=== PATIENT | male | born 1940 | race Caucasian/White ===

== ENCOUNTER 2017-08-19 16:30 | Inpatient (IN) | payer MEDICARE, BC ==
[2017-08-20 08:51] VITALS: BMI 29.0
[2017-08-25] MEDS ORDERED: Tranexamic Acid 1,000 MG/100 ML BAG ONE ×2 (06:01→08:35)
[2017-08-25] MEDS ORDERED: CEFAZOLIN/Water 2 GM/20 ML SYRINGE ONE (06:02)
[2017-08-25] MEDS ORDERED: Vancomycin HCl 1.5 GM in Sodium Chloride 0.9% 250 ML 300 ML IVPB SCH (06:15)
[2017-08-25] MEDS ORDERED: Ropivacaine 0.2% HCl/PF 20 ML ONE (06:19)
[2017-08-25] MEDS ORDERED: Fentanyl 100 MCG/2 ML VIAL ONE ×3 (06:19→09:02)
[2017-08-25] MEDS ORDERED: Lidocaine 1% (PF) 30 ML VIAL ONE (06:19)
[2017-08-25] MEDS ORDERED: Midazolam HCl 2 mg/2 ml Vial ONE (06:19)
[2017-08-25] MEDS ORDERED: traMADol HCl 50 MG TAB PO PRN ×3 (06:50→06:57)
[2017-08-25] MEDS ORDERED: Acetaminophen/Codeine 30-300mg Tablet PO PRN ×2 (06:50)
[2017-08-25] MEDS ORDERED: Ondansetron HCl/PF 4 MG/2 ML Vial IVP PRN ×3 (06:50→08:42)
[2017-08-25] MEDS ORDERED: HYDROcodone/Acetaminophen 10/325 mg Tablet PO PRN ×3 (06:50→06:57)
[2017-08-25] MEDS ORDERED: Zolpidem Tartrate 5 MG TAB PO PRN ×2 (06:50→06:57)
[2017-08-25] MEDS ORDERED: Promethazine HCl 25 MG/ML VIAL IM PRN ×3 (06:50→08:42)
[2017-08-25] MEDS ORDERED: Fentanyl 100 MCG/2 ML VIAL SLOW IVP PRN ×2 (06:50)
[2017-08-25] MEDS ORDERED: Acetaminophen 325 MG TAB PO PRN (06:50)
[2017-08-25] MEDS ORDERED: diphenhydrAMINE 25 MG CAP PO PRN (06:50)
[2017-08-25] MEDS ORDERED: Fentanyl 100 MCG/2 ML VIAL IV PRN (06:57)
[2017-08-25] MEDS ORDERED: Ropivacaine HCl/PF 250 ML in Premix Bag 1 BAG NERVE BLCK SCH (06:57)
[2017-08-25] MEDS ORDERED: Tranexamic Acid 1,000 MG in Sodium Chloride 0.9% 100 ML IVPB SCH (07:00)
[2017-08-25] MEDS ORDERED: Promethazine HCl 25 MG/ML VIAL SLOW IVP PRN (08:42)
[2017-08-25] MEDS ORDERED: Non-Formulary Item 1 EACH (Multivitamin [Multi-Vitamin Daily] 1 TAB) PO SCH (09:00)
[2017-08-25] MEDS: Ferrous Gluconate 324 MG TAB PO SCH ×2 (10:29→21:30)
[2017-08-25] MEDS: Aspirin 325 MG TAB PO SCH ×2 (10:29→21:29)
[2017-08-25] MEDS: Multivit, Therapeutic 1 TAB PO SCH (10:29)
[2017-08-25] MEDS: Multivitamin W/ Minerals 1 TAB PO SCH (10:29)
[2017-08-25] MEDS: Senokot S 8.6-50 MG TAB PO SCH ×2 (10:29→21:30)
--- NOTE | 2017-08-25 10:34 | RAD ---
TWO VIEWS LEFT KNEE: Indication: Left total knee post op. Comparison: None. FINDINGS: There is a left total knee prosthesis that projects in the expected position with scattered intraarti cular and periarticular soft tissue gas. There are moderate to prominent calcifications involving the peripheral vasculature. IMPRESSION: Post-operative left knee. POS: ISABELA
--- NOTE | 2017-08-25 10:56 | OP ---
PREOPERATIVE DIAGNOSIS: Degenerative joint disease, left knee. POSTOPERATIVE DIAGNOSIS: Degenerative joint disease, left knee. SURGEON: Sohail Trinidad M.D. SPORTS BOOK WRITER: Tam Boggs PA-C. BLOOD LOSS: 250 mL. SPECIMEN: None. DRAINS: None. COMPLICATIONS: None. TOURNIQUET TIME: Not used. IMPLANTS USED: 4 [place] [employer] 6 femur, 6 tibia, 9 mm CS X3 polyethylene, and A32 patella. PROCEDURE IN DETAIL: After informed consent was obtained in the preoperative holding area. The garland ent was taken to the operative suite where general anesthesia was induced. Once adequate level of ge neral anesthesia was obtained, the patient was positioned and a well-padded tourniquet was placed rafael und the left proximal thigh. The left lower extremity was then prepped and draped in the usual steri le fashion. Prior to exsanguination, a time out was called and all members of the surgical team agre ed upon site, surgeon, and patient. The extremity was then exsanguinated and the tourniquet was rais ed. A midline longitudinal incision was then made directly over the patella extending two fingerbrea dths above the superior pole of the patella and two fingerbreadths inferior to the inferior patellar pole of the patella. Deeper subcutaneous layers were dissected sharply and local bleeding was contro lled with Bovie electrocautery. A quad tendon longitudinal split was then made sharply and a median parapatellar arthrotomy was carried out both sharp and with Bovie electrocautery, carried down to one fingerbreadth medial to the tibial tubercle. The knee was then placed into flexion and the patella was everted nicely, and a copious fat pad ectomy was performed allowing for greater exposure of the t ibia. The computer-assisted distal femoral fiducial was then placed and pinned firmly, and the dista l femoral cutting guide was pinned firmly into place. The oscillating saw was then used to remove th e appropriate amount of bone. The 4-in-1 cutting block was then placed on the distal femur and the o scillating saw was used to remove the appropriate amount of bone off of the anterior, posterior, and chamfer cuts. After completion of bone cuts, the anterior cruciate ligament was resected sharply and the posterior cruciate ligament retractor was placed and the tibia was subluxed for better exposure. Partial meniscectomies were carried out, and the tibial computer-assisted fiducial was pinned, and the cutting guide was placed. Oscillating saw was then used to remove the bone with Hohmann retracto rs used to take care and protect the collateral ligaments. After the tibial resection was performed, a laminar industrial waste treatment technician was placed in between the freshened bone cuts. The knee placed at 90 degrees and further bilateral meniscectomies were carried out, and the curved osteotome and curettage was used t o remove any excess bone spurs in the posterior compartment. Exparel was then injected into the post erior capsule, kylah-articular synovia, pre-patella synovia, and musculature surrounding the capsule. The trial femoral component, tibial baseplate were placed with the appropriate polyethylene trial in sert with an appropriate polyethylene spacer and patellar button. The knee was taken through full ra nge of motion with flexion and extension from 0-90 degrees and patellar broach squarely in the trochl ea without any squinting or subluxation noted. The knee was also stable to varus and valgus stressin g at 0, 15, 45, and 90 degrees of flexion. The drawer was negative. All trial components were then removed and the keel punch was used to provide the appropriate defect in the tibia with a mallet. Th e freshened bone cuts were copiously irrigated with pulsatile lavage of about 1-1/2 liters to remove all excess debris. The freshened bone cuts were then dried and with suction and lap sponge. The kne e was placed in flexion and retractors were placed to provide access to all bone cuts. Tobramycin im pregnated methyl methacrylate cement was then placed on the freshened bone cuts and implants which we re malleted firmly into place. Curettage and [place] elevators were used to remove any excess bone amina ent. The knee was placed into full extension and the patellar button was placed under compression, a nd the cement was allowed to cure. Once completed, the components were again taken through full rang e of motion and copious irrigation of the knee was carried out with another liter of normal saline. All components were inspected fully with full range of motion and varus and valgus stressing. There w as no laxity noted and full extension was observed clinically. Primary closure was accomplished with #2 interrupted Vicryl stitch of the arthrotomy defect. This was oversewn with a #2 running Quill ba rbed stitch. The gravitational platelet system was then injected into the arthrotomy prior to closur e. The subcutaneous layer was then closed with a running 0 barbed Monocryl stitch and skin closure a ccomplished with a running subcuticular 3-0 Monocryl barbed Quill stitch and augmented with cement on the skin. Tourniquet was lowered. Good spontaneous return of distal pulses was noted clinically an d a sterile dressing was applied to the incision. The procedure was terminated without any complicat ions. The patient was awakened in the operative suite and the tourniquet was removed, and the patien t was taken to the recovery room in stable condition.
[2017-08-25] MEDS: Ketorolac Tromethamine 30 MG/ML VIAL IVP SCH ×2 (11:30→17:16)
[2017-08-25] MEDS ORDERED: Ketorolac Tromethamine 30 MG/ML VIAL IVP SCH (14:00)
[2017-08-25] MEDS: Sodium Chloride 0.9% 1,000 ML IV SCH ×3 (14:21→21:37)
[2017-08-25] MEDS: CEFAZOLIN/Water 2 GM/20 ML SYRINGE SLOW IVP SCH ×2 (14:26→21:30)
[2017-08-25] MEDS ORDERED: Propofol 200 MG/20 ML VIAL ONE (14:31)
[2017-08-25] MEDS ORDERED: Ondansetron HCl/PF 4 MG/2 ML Vial ONE (14:31)
[2017-08-25] MEDS ORDERED: Ketorolac Tromethamine 30 MG/ML VIAL ONE (14:31)
[2017-08-25] MEDS ORDERED: PHENYLEPHRINE-NS 100 MCG/ML 10 ML SYRINGE ONE (14:31)
--- NOTE | 2017-08-25 14:32 | PDOC.PN ---
- Subjective Encounter Start Date: 08/25/17 Encounter Start Time: 14:32 Pt seen for management of medical comorbidities, including BPH. Denies chest pain, shortness of breath, fevers or chills. - Objective MAR Reviewed: Yes Vital Signs & Weight: Vital Signs (12 hours) Temp Pulse Resp BP Pulse Ox 08/25/17 10:39 97.0 F L 65 18 98 08/25/17 10:10 97.0 F L 65 18 156/84 H 98 Weight Weight 180 lb Phys Exam - Physical Examination Constitutional: NAD HEENT: moist MMs Neck: supple Respiratory: clear to auscultation bilateral Cardiovascular: RRR Gastrointestinal: soft s/p L knee surgery Neurological: moves all 4 limbs Psychiatric: normal affect Skin: no rash Dx/Plan (1) BPH (benign prostatic hyperplasia) Code(s): N40.0 - BENIGN PROSTATIC HYPERPLASIA WITHOUT LOWER URINRY TRACT SYMP Status: Chronic (2) Dyslipidemia Code(s): E78.5 - HYPERLIPIDEMIA, UNSPECIFIED Status: Chronic (3) Arthritis Code(s): M19.90 - UNSPECIFIED OSTEOARTHRITIS, UNSPECIFIED SITE Status: Chronic - Plan * .BPH stable. Monitor vital signs. PRN IV hydralazine for BP spikes. Dyslipidemia stable. s/p L knee surgery. DVT prophylaxis and pain management per orthopedic surgery service. Review of Systems - Review of Systems Respiratory: negative: Cough, Dry, Shortness of Breath, Hemoptysis, SOB with Excertion, Pleuritic Pain, Sputum, Wheezing Cardiovascular: negative: Chest Pain, Palpitations, Orthopnea, Paroxysmal Noc. Dyspnea, Edema, Light Headedness - Medications/Allergies Allergies/Adverse Reactions: Allergies Allergy/AdvReac Type Severity Reaction Status Date / Time No Known Allergies Allergy Verified 08/20/17 08:50 Medications: Current Medications Acetaminophen (Tylenol) 650 mg PO Q4H PRN PRN Reason: SANTIAGO/ T > 101F; Mild Pain (1-3) Acetaminophen/Codeine Phosphate (Tylenol #3) 1 tab PO Q4H PRN PRN Reason: Moderate Pain (4-6) Acetaminophen/Codeine Phosphate (Tylenol #3) 2 tab PO Q4H PRN PRN Reason: Severe Pain (7-10) Hydrocodone Bitart/Acetaminophen ([place] 10/325) 1 tab PO Q4H PRN PRN Reason: Pain (1-3) Hydrocodone Bitart/Acetaminophen ([place] 10/325) 2 tab PO Q4H PRN PRN Reason: PAIN (4-6) Aspirin (Aspirin) 325 mg PO BID [facility] Last Admin: 08/25/17 10:29 Dose: Not Given Cefazolin Sodium (Ancef) 2 gm SLOW IVP Q8HR [facility] Stop: 08/25/17 22:01 Last Admin: 08/25/17 14:26 Dose: 2 gm Diphenhydramine HCl (Benadryl) 25 mg PO Q6H PRN PRN Reason: Itching Fentanyl (Sublimaze) 50 mcg IV Q1H PRN PRN Reason: BREAKTHROUGH PAIN Ferrous Gluconate (Fergon) 324 mg PO BID [facility] Last Admin: 08/25/17 10:29 Dose: Not Given Sodium Chloride (Normal Saline 0.9%) 1,000 mls @ 100 mls/hr IV .Q10H [facility] Last Admin: 08/25/17 14:21 Dose: 1,000 mls Tranexamic Acid 1,000 mg/ (Sodium Chloride) 110 mls @ 200 mls/hr IVPB ONE [facility] Stop: 08/25/17 21:00 Ropivacaine 250 ml/ Device 250 mls @ 0 mls/hr NERVE BLCK INF [facility] PRN Reason: As Directed Iron/Minerals/Multivitamins (Theragran M) 1 tab PO DAILY [facility] Last Admin: 08/25/17 10:29 Dose: Not Given Ketorolac Tromethamine (Toradol) 15 mg IVP Q6HR [facility] Stop: 08/27/17 06:01 Last Admin: 08/25/17 11:30 Dose: 15 mg Multivitamins (Theragran) 1 tab PO DAILY [facility] Last Admin: 08/25/17 10:29 Dose: Not Given Ondansetron HCl (Zofran) 4 mg IVP Q6H PRN PRN Reason: Nausea/Vomiting Promethazine HCl (Phenergan) 12.5 mg IM Q4H PRN PRN Reason: Nausea Senna/Docusate Sodium (Senokot S) 2 tab PO BID [facility] Last Admin: 08/25/17 10:29 Dose: Not Given Sodium Chloride (Flush - Normal Saline) 10 ml IVF PRN PRN PRN Reason: Saline Flush Tramadol HCl (Ultram) 50 mg PO Q6H PRN PRN Reason: Mild Pain (1-3) Tramadol HCl (Ultram) 100 mg PO Q6H PRN PRN Reason: Moderate Pain 4-6 Zolpidem Tartrate (Ambien) 5 mg PO HSPRN PRN PRN Reason: Insomnia
[2017-08-25] MEDS ORDERED: hydrALAZINE 20 MG/ML VIAL SLOW IVP PRN (14:44)
[2017-08-26] MEDS: Ketorolac Tromethamine 30 MG/ML VIAL IVP SCH ×4 (00:48→17:41)
[2017-08-26] MEDS: HYDROcodone/Acetaminophen 10/325 mg Tablet PO PRN ×2 (02:59→08:21)
[2017-08-26 05:38] LABS: Hematocrit 36.5 % (42.0-52.0); Mean Platelet Volume 6.2 fL (7.4-10.4); Red Blood Cell (RBC) Count 3.97 mill/uL (4.70-6.10)
[2017-08-26] MEDS: Multivit, Therapeutic 1 TAB PO SCH (08:23)
[2017-08-26] MEDS: Ferrous Gluconate 324 MG TAB PO SCH ×2 (08:23→20:12)
[2017-08-26] MEDS: Multivitamin W/ Minerals 1 TAB PO SCH (08:23)
[2017-08-26] MEDS: Senokot S 8.6-50 MG TAB PO SCH ×2 (08:23→20:12)
[2017-08-26] MEDS: Aspirin 325 MG TAB PO SCH ×2 (08:23→20:12)
[2017-08-26] MEDS: Sodium Chloride 0.9% 1,000 ML IV SCH ×2 (11:42→20:21)
--- NOTE | 2017-08-26 13:53 | PDOC.PN ---
- Subjective Encounter Start Date: 08/26/17 Encounter Start Time: 09:00 Pt seen for followup re: dyslipidemia. Denies history of BPH. Reports he never needed to be on medication for dyslipidemia. No complaints. - Objective MAR Reviewed: Yes Vital Signs & Weight: Vital Signs (12 hours) Temp Pulse Resp BP Pulse Ox 08/26/17 11:36 98.5 F 70 16 129/75 97 08/26/17 08:20 99.7 F H 74 16 148/76 H 100 08/26/17 04:47 99.1 F 72 18 133/73 94 L Weight Admit Weight 180 lb Weight 180 lb I&O: 08/25/17 08/26/17 08/27/17 06:59 06:59 06:59 Intake Total 1700 Output Total 1300 Balance 400 Result Diagrams: 08/27/17 05:08 Phys Exam - Physical Examination Constitutional: NAD HEENT: moist MMs Neck: supple Respiratory: clear to auscultation bilateral Cardiovascular: RRR Gastrointestinal: soft s/p L knee surgery Neurological: moves all 4 limbs Psychiatric: normal affect Dx/Plan (1) Dyslipidemia Code(s): E78.5 - HYPERLIPIDEMIA, UNSPECIFIED Status: Chronic (2) Arthritis Code(s): M19.90 - UNSPECIFIED OSTEOARTHRITIS, UNSPECIFIED SITE Status: Chronic - Plan PT/OT, out of bed/ambulate * . Continue to monitor vital signs. PRN IV hydralazine. Review of Systems - Review of Systems Cardiovascular: negative: Chest Pain, Palpitations, Orthopnea, Paroxysmal Noc. Dyspnea, Edema, Light Headedness Gastrointestinal: negative: Nausea, Vomiting, Abdominal Pain, Diarrhea, Constipation, Melena, Hematochezia - Medications/Allergies Allergies/Adverse Reactions: Allergies Allergy/AdvReac Type Severity Reaction Status Date / Time No Known Allergies Allergy Verified 08/20/17 08:50 Medications: Current Medications Acetaminophen (Tylenol) 650 mg PO Q4H PRN PRN Reason: SANTIAGO/ T > 101F; Mild Pain (1-3) Acetaminophen/Codeine Phosphate (Tylenol #3) 1 tab PO Q4H PRN PRN Reason: Moderate Pain (4-6) Acetaminophen/Codeine Phosphate (Tylenol #3) 2 tab PO Q4H PRN PRN Reason: Severe Pain (7-10) Hydrocodone Bitart/Acetaminophen ([place] 10/325) 1 tab PO Q4H PRN PRN Reason: Pain (1-3) Hydrocodone Bitart/Acetaminophen ([place] 10/325) 2 tab PO Q4H PRN PRN Reason: PAIN (4-6) Last Admin: 08/26/17 08:21 Dose: 2 tab Aspirin (Aspirin) 325 mg PO BID [facility] Last Admin: 08/26/17 08:23 Dose: 325 mg Diphenhydramine HCl (Benadryl) 25 mg PO Q6H PRN PRN Reason: Itching Fentanyl (Sublimaze) 50 mcg IV Q1H PRN PRN Reason: BREAKTHROUGH PAIN Ferrous Gluconate (Fergon) 324 mg PO BID [facility] Last Admin: 08/26/17 08:23 Dose: 324 mg Hydralazine HCl (Apresoline) 10 mg SLOW IVP Q6H PRN PRN Reason: SBP Greater Than 170 Sodium Chloride (Normal Saline 0.9%) 1,000 mls @ 100 mls/hr IV .Q10H [facility] Last Admin: 08/26/17 11:42 Dose: Not Given Ropivacaine 250 ml/ Device 250 mls @ 0 mls/hr NERVE BLCK INF [facility] PRN Reason: As Directed Last Admin: 08/26/17 11:11 Dose: 250 mls Iron/Minerals/Multivitamins (Theragran M) 1 tab PO DAILY [facility] Last Admin: 08/26/17 08:23 Dose: 1 tab Ketorolac Tromethamine (Toradol) 15 mg IVP Q6HR [facility] Stop: 08/27/17 06:01 Last Admin: 08/26/17 11:18 Dose: 15 mg Multivitamins (Theragran) 1 tab PO DAILY [facility] Last Admin: 08/26/17 08:23 Dose: 1 tab Ondansetron HCl (Zofran) 4 mg IVP Q6H PRN PRN Reason: Nausea/Vomiting Promethazine HCl (Phenergan) 12.5 mg IM Q4H PRN PRN Reason: Nausea Senna/Docusate Sodium (Senokot S) 2 tab PO BID [facility] Last Admin: 08/26/17 08:23 Dose: 2 tab Sodium Chloride (Flush - Normal Saline) 10 ml IVF PRN PRN PRN Reason: Saline Flush Last Admin: 08/26/17 08:24 Dose: 10 ml Tramadol HCl (Ultram) 50 mg PO Q6H PRN PRN Reason: Mild Pain (1-3) Tramadol HCl (Ultram) 100 mg PO Q6H PRN PRN Reason: Moderate Pain 4-6 Zolpidem Tartrate (Ambien) 5 mg PO HSPRN PRN PRN Reason: Insomnia
[2017-08-27] MEDS: Ketorolac Tromethamine 30 MG/ML VIAL IVP SCH ×2 (00:59→04:21)
[2017-08-27] MEDS: HYDROcodone/Acetaminophen 10/325 mg Tablet PO PRN ×2 (04:19→13:23)
[2017-08-27 05:49] LABS: Hematocrit 35.3 % (42.0-52.0); Mean Platelet Volume 6.3 fL (7.4-10.4); Red Blood Cell (RBC) Count 3.84 mill/uL (4.70-6.10); White Blood Cell (WBC) Count 8.6 thou/uL (4.8-10.8)
[2017-08-27] MEDS: Senokot S 8.6-50 MG TAB PO SCH (08:08)
[2017-08-27] MEDS: Ferrous Gluconate 324 MG TAB PO SCH (08:08)
[2017-08-27] MEDS: Multivit, Therapeutic 1 TAB PO SCH (08:08)
[2017-08-27] MEDS: Aspirin 325 MG TAB PO SCH (08:08)
[2017-08-27] MEDS: Multivitamin W/ Minerals 1 TAB PO SCH (08:08)
[2017-08-27] MEDS: Sodium Chloride 0.9% 1,000 ML IV SCH (09:39)
--- NOTE | 2017-08-27 11:03 | PDOC.EVN ---
Event Note - Event Note Event Note: Pt denie s any complaints. S1, S2, reg, Lungs CTA. Plan for discharge today noted, will sign off.
[2017-08-27 15:14] VITALS: BP 138/71; TEMP 98.6
--- NOTE | 2017-08-31 08:31 | DIS ---
DATE OF ADMISSION: 08/25/2017 DATE OF DISCHARGE: 08/27/2017 PREOPERATIVE DIAGNOSIS: Osteoarthritis/degenerative joint disease, left knee. DISCHARGE DIAGNOSIS: Osteoarthritis/degenerative joint disease, left knee. PROCEDURE: The patient underwent a left total knee replacement. HOSPITAL COURSE: Hospital stay was unremarkable. The patient was admitted to [address] where he worked with staff, physical therapy, occupational therapy, and progressed quite well. By postoperative day #2, he was ready to discharge home. DISCHARGE CONDITION: Good/stable. DISPOSITION: Home with family. FOLLOWUP: Followup would be in 3-4 weeks, sooner if there are problems or concerns. DISCHARGE MEDICATIONS: Given with usage instructions. Tam Boggs PA-C dictating for Dr. Sohail Trinidad.
== END 2017-08-27 15:33 | disposition home or self-care (01) | DRG 470 ==
LOC: SJJU 08-25 05:36
PROVIDERS: ADMIT Orthopaedic Surgery; ATTEND Orthopaedic Surgery
PROC: 0SRD0J9 Replacement of Left Knee Joint with Synthetic Substitute, Cemented, Open Approach (ICD-10-PCS; principal; 2017-08-25)
PROC: 3E0T3BZ Introduction of Anesthetic Agent into Peripheral Nerves and Plexi, Percutaneous Approach (ICD-10-PCS; 2017-08-25)
DX: M17.12 Unilateral primary osteoarthritis, left knee (principal); E78.5 Hyperlipidemia, unspecified; N40.0 Benign prostatic hyperplasia without lower urinary tract symptoms
CPT/HCPCS: 36415; 85027; C1713; C1776; G8978-GP-CL; G8979-GP-CJ; J1885; J2001; J2250; J2405; J2704; J2795; J3010; J3370; J7050

== ENCOUNTER 2017-08-20 08:32 | Outpatient (CLI) | payer MEDICARE, BC ==
[2017-08-20 10:31] LABS: Hematocrit 44.1 % (42.0-52.0); Mean Platelet Volume 6.2 fL (7.4-10.4); Red Blood Cell (RBC) Count 4.79 mill/uL (4.70-6.10); White Blood Cell (WBC) Count 6.7 thou/uL (4.8-10.8)
[2017-08-20 10:50] LABS: Prothrombin Time 14.8 SEC (12.0-14.7)
[2017-08-20 10:52] LABS: Anion Gap 12 mmol/L (10-20); BUN (Urea Nitrogen) 11 mg/dL (8.4-25.7); Calc. Creatinine Clearance 0 mL/min (70-130); Calcium 9.8 mg/dL (7.8-10.44); Carbon Dioxide 26 mmol/L (23-31); Chloride 103 mmol/L (98-107); Estimated GFR-MDRD Greater than 90
== END 2017-08-20 08:33 | disposition home or self-care (01) ==
LOC: LABBT 08:32
PROVIDERS: ATTEND Orthopaedic Surgery
DX: Z01.812 Encounter for preprocedural laboratory examination (principal); M17.12 Unilateral primary osteoarthritis, left knee
CPT/HCPCS: 80048; 85027; 85610; 86850; 86900; 86901

== ENCOUNTER 2019-04-04 07:29 | Inpatient (IN) | payer MEDICARE, BC ==
[2019-04-04] MEDS ORDERED: Piperacillin/Tazobactam 3.375 GM in Sodium Chloride 0.9% 100 ML IVPB SCH (08:00)
[2019-04-04] MEDS ORDERED: Acetaminophen 500 MG TAB ONE (08:19)
[2019-04-04] MEDS ORDERED: Piperacillin/Tazobactam 4.5 GM VIAL ONE (08:19)
--- NOTE | 2019-04-04 08:31 | RAD ---
Radiograph left leg tibia-fibula 2 views: DATE: 04/04/2019 HISTORY: 78-year-old male with nontraumatic left leg pain FINDINGS: Metallic prosthesis at tibial plateau. In the rest of the tibia and fibula, no osteolytic, osteoblast ic, or permeative lesion. No periostitis. No recent fracture. Soft tissue edema. No soft tissue calcification. IMPRESSION: 1. Status post total left knee replacement arthroplasty. 2. Soft tissue edema of the leg. 3. No acute osseous abnormality of tibia or fibula.
[2019-04-04 08:53] LABS: Hemoglobin 14.9 g/dL (14.0-18.0); Mean Corpuscular HGB CONC 33.6 g/dL (32.0-36.0); Mean Corpuscular Hemoglobin 32.3 pg (27.0-31.0); Mean Corpuscular Volume 96.2 fL (78.0-98.0); Mean Platelet Volume 6.7 fL (7.4-10.4); Platelet Count 210 thou/uL (130-400); RBC Distribution Width 12.9 % (11.5-14.5); White Blood Cell (WBC) Count 22.6 thou/uL (4.8-10.8)
[2019-04-04 08:55] LABS: Band 15 % (5-11); Lymphocytes 3 % (21-51); MDiff Complete? YES; Monocytes 8 % (0-10); Neutrophil 74 % (42-75); Platelet Morphology Comment Appears Adequate; Reflex for Review?? NO; Vacuoles MODERATE
[2019-04-04 08:59] LABS: ALT (SGPT) 33 U/L (8-55); AST (SGOT) 42 U/L (5-34); Albumin 4.1 g/dL (3.4-4.8); Alkaline Phosphatase 40 U/L (40-150); Anion Gap 15 mmol/L (10-20); BUN (Urea Nitrogen) 17 mg/dL (8.4-25.7); Bilirubin, Total 1.7 mg/dL (0.2-1.2); Calc. Creatinine Clearance 0 mL/min (70-130); Calcium 9.6 mg/dL (7.8-10.44); Carbon Dioxide 21 mmol/L (23-31); Chloride 95 mmol/L (98-107); Estimated GFR-MDRD 69; Globulin 3.4 g/dL (2.4-3.5); Glucose 102 mg/dL (83-110); Potassium 3.4 mmol/L (3.5-5.1); Protein, Total 7.5 g/dL (5.8-8.1); Sodium 128 mmol/L (136-145)
[2019-04-04] MEDS ORDERED: Sodium Chloride 0.9% 1,000 ML IV SCH (09:00)
--- NOTE | 2019-04-04 09:52 | CT ---
CT left thigh with IV contrast CT left lower leg with IV contrast HISTORY: Left leg pain, edema. Fever. Evaluate for necrotizing fasciitis. Findings left pelvic iliac lymph node measures up to 2.8 cm greatest diameter on the axial images. Sm aller left iliac and inguinal lymph nodes are present. A lower left inguinal lymph node measures up to 2.2 cm diameter on the axial images and retains a normal fatty hilum. There is stranding within th e subcutaneous fat about the periphery of the calf and the anterior aspect of the knee and suprapatellar tissues. Fluid distention of the suprapatellar bursa is present with thickening of the synovial lining apparent. Detail about the knee is largely obscured by metallic beam hardening artifact from knee prosthesis. Fat striations throughout the muscle bundles are maintained. No focal fluid collections are apparent outside of the joint capsule. Prominent calcification throughout the arterial structures. IMPRESSION: Moderate stranding within the subcutaneous tissues of the calf and anterior lower thigh. No soft tissue gas or abscess fluid collections are apparent. Fluid distention of the suprapatellar bursa with thickening of the synovium. Clinical correlation reg arding possibility of infection is required. No gas is present within the fluid distended bursa. Enlarged lymph nodes at the left iliac and inguinal chain are likely reactive (rather than neoplastic ) given the inflamed appearance of the leg. Prominent atherosclerosis.
--- NOTE | 2019-04-04 09:53 | ULT ---
VENOUS DOPPLER ULTRASOUND OF THE LEFT LOWER EXTREMITY: Date: 04/04/19 HISTORY: Left leg edema, pain, and erythema. TECHNIQUE: Barros scale, color flow, and spectral Doppler imaging of the deep venous system of the left lower extr emity performed. FINDINGS: There is good flow, compression, and augmentation noted in the left common femoral, femoral, deep fem oral, popliteal, posterior tibial, and greater saphenous veins. Prominent lymph nodes are seen in the left groin. IMPRESSION: No evidence of deep venous thrombosis in the left lower extremity. POS: [facility]
[2019-04-04] MEDS ORDERED: Heparin 1,000 UNITS/ML VIAL ONE (10:00)
[2019-04-04 10:13] LABS: Bacteria/HPF None Seen HPF (None Seen); Bilirubin Negative (Negative); Blood, Urine 1+ (Negative); Clarity Clear (Clear); Glucose, Urine (Dipstick) Normal (Negative); Leukocyte Negative Leu/uL (Negative); Nitrite Negative (Negative); Protein, Urine (Dipstick) 70 mg/dL (Neg-Trace); Squamous Epithelial None Seen HPF (0-3); Urobilinogen Normal mg/dL (Less than 2); WBC/HPF 0-3 HPF (0-3)
[2019-04-04 12:36] VITALS: BMI 31.9
[2019-04-04 12:37] LABS: Lactic Acid 1.7 mmol/L (0.5-2.2)
[2019-04-04] MEDS ORDERED: Ondansetron PF 4 MG/2 ML Vial IVP PRN ×2 (12:55→13:52)
[2019-04-04] MEDS ORDERED: Ondansetron ODT 4 MG TAB SL PRN (12:55)
[2019-04-04] MEDS ORDERED: Acetaminophen 325 MG TAB PO PRN (12:55)
[2019-04-04] MEDS ORDERED: Senokot S 8.6-50 MG TAB PO PRN (13:52)
[2019-04-04] MEDS ORDERED: Bisacodyl 10 MG SUPP PR PRN (13:52)
[2019-04-04] MEDS ORDERED: ISOVUE-370 76%-LOCM 1 ML ONE (13:58)
[2019-04-04] MEDS ORDERED: Piperacillin/Tazobactam 4.5 GM in Sodium Chloride 0.9% 100 ML IVPB SCH (14:00)
--- NOTE | 2019-04-04 14:44 | HP ---
REASON FOR ADMISSION: Sepsis, left lower extremity cellulitis. HISTORY OF PRESENTING ILLNESS: The patient gives history of having left lower extremity edema, swelling, and redness which started on Thursday. This has been progressively getting worse. This morning, he could barely ambulate because of severe pain. He made it to emergency room. He also mentions that, on Thursday morning, the patient did various workouts at the recreational center at [facility]. He did a lot of pushups and weightlifting. He also did various other activities. He thinks that might have caused his current symptoms. On arrival in ER, the patient was found to have had a white count of 22 with temperature of 100 and bandemia. His sodium was also low at 128. He has no complaints of nausea, vomiting, or diarrhea. PAST MEDICAL AND SURGICAL HISTORY: Dyslipidemia and bilateral knee replacements. CURRENT MEDICATION: Fish oil 1000 mg daily. ALLERGIES: NO KNOWN DRUG ALLERGIES. PERSONAL HISTORY: Does not abuse alcohol or drugs. No history of smoking. 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 He lives with his roommate. FAMILY HISTORY: Mother at the age of 87 years from natural causes. Father at the age of 66, he had uncontrolled hypertension and was a smoker. Code status is full. Power of attorney lawyer is his roommate, Mr. Lopez, number to reach him is #[phone]. The patient has no children nor is he . He has a brother, who lives in [place]. REVIEW OF SYSTEMS: CONSTITUTIONAL: Negative for weight loss or gain, ability to conduct usual activities. SKIN: Negative for rash, itching. EYES: Negative for double vision, pain. ENT/MOUTH: Negative for nose bleeding, neck stiffness, pain, tenderness. CARDIOVASCULAR: Negative for palpitations, dyspnea on exertion, orthopnea. RESPIRATORY: Negative for shortness of breath, wheezing, cough, hemoptysis, fever or night sweats. GASTROINTESTINAL: Negative for poor appetite, abdominal pain, heartburn, nausea , vomiting, constipation, or diarrhea. GENITOURINARY: Negative for urgency, frequency, dysuria, nocturia. MUSCULOSKELETAL: Negative for pain, swelling. NEUROLOGIC/PSYCHIATRIC: Negative for anxiety, depression. ALLERGY/IMMUNOLOGIC: Negative for skin rash, bleeding tendency. PHYSICAL EXAMINATION: GENERAL: The patient is an 78-year-old male, who is currently a bit lethargic, otherwise not in any acute distress. VITAL SIGNS: Blood pressure 134/74, pulse 96 per minute, respiratory rate 18 per minute, temperature 100.4 degrees Fahrenheit, and saturating 97% on room air. NECK: Supple. No elevated JVD. HEENT: Eyes; extraocular muscles intact. Pupils reacting to light. Oral cavity, mucous membranes are dry. No exudates or congestion. CARDIOVASCULAR: S1 and S2 heard, regular rhythm. RESPIRATORY: Air entry 1+ bilateral. Scattered rhonchi plus bilateral. No rales or wheezes. ABDOMEN: Soft. Bowel sounds heard, no rigidity or guarding. EXTREMITIES: Left lower extremity, there is severe erythema and edema from the ankle until the knee and also has streaking of erythema over the medial aspect of the thigh as well. Peripheral pulses are 2+ bilateral. No ischemic ulcerations or gangrene. NEUROLOGIC: Central nervous system, no gross focal deficits noted. The patient is lethargic, but responds well to questions. PSYCHIATRIC: No obvious hallucinations or delusions. LABORATORY DATA: White count of 22, H and H 14 and 44, platelet count 210 with 74% neutrophils and 15% bands. Sodium 128, potassium 3.4, serum bicarb 21, BUN 17, creatinine 1.0. Lactic acid 2.3. Total bilirubin 1.7, AST 42, albumin is 4.1. UA shows 1+ blood with 4 to 6 rbc's. Venous ultrasound Doppler of left lower extremity done, shows no evidence of DVT. CT of the left lower extremity with IV contrast done shows moderate stranding within the subcutaneous tissues of the calf and anterior lower thigh. No soft tissue gas or abscess, has fluid distention of the suprapatellar bursa with thickening of the synovium. Enlarged lymph nodes in the left iliac and inguinal chain, likely reactive. There is incidental finding of prominent atherosclerosis. Plain x-ray of tibia-fibula done, showed no acute osseous abnormality. EKG done shows sinus rhythm with first degree AV block at 89 beats per minute. There is poor R-wave progression. Questionable Q-waves in leads III and aVF. CLINICAL IMPRESSION AND PLAN: The patient will be admitted to medical floor for sepsis with left lower extremity cellulitis. The patient appears a bit toxic at present with fever and elevated white count and bandemia. We will place him on vancomycin, Zosyn, and clindamycin for 24 to 36 hours. He has received 2 L of normal saline in the ER and will continue at 50 mL/hr. The patient has dry coughing spells at present, will be closely monitored for possible volume overload. Echo with 2D Doppler for LV function and valvular function will be obtained. We will continue his fish oil as before and place him on Pepcid 20 mg twice daily. We will also consult Dr. Mckinnon for Infectious Disease. The patient's code status is full, this was discussed with the patient at bedside. Job ID: [id number] [facility]
[2019-04-04] MEDS: Sodium Chloride 0.9% 1,000 ML IV SCH (16:10)
[2019-04-04] MEDS: Piperacillin/Tazobactam 4.5 GM in Sodium Chloride 0.9% 100 ML IVPB SCH (16:19)
--- NOTE | 2019-04-04 16:33 | RAD ---
Chest one view HISTORY: Chest pain. FINDINGS: Cardiac silhouette is magnified and slightly enlarged. Pulmonary vasculature is engorged. M ild prominence of the central pulmonary interstitial near each hilum. No lobar consolidation or evidence of pneumothorax. Mediastinum is midline with aortic calcification. Severe degenerative joiner es left shoulder. IMPRESSION: Bilateral perihilar infiltrates favored to be related to borderline pulmonary vascular co ngestion. No lobar consolidation is apparent. Borderline cardiomegaly. Atherosclerosis.
--- NOTE | 2019-04-04 18:31 | CON ---
DATE OF CONSULTATION: 04/04/2019 REASON FOR CONSULTATION: Cellulitis versus infection left knee arthroplasty. HISTORY OF PRESENT ILLNESS: An 78-year-old with history of osteoarthrosis with bilateral knee replacements and hyperlipidemia, who developed fairly sudden onset of inflammatory changes with pain, functional impairment left knee area associated with erythema in the leg and thigh of the ipsilateral extremity. He was admitted and started on IV antimicrobial therapy. He currently has still quite a bit of limitation of range of motion of the knee. He feels tight and it hurts. He denies headaches. No visual symptoms, sore throat, odynophagia, or dysphagia. No cough, sputum production, or chest pain. No abdominal pain or diarrhea. No genitourinary symptoms. No vomiting. No bleeding. PAST MEDICAL HISTORY: Dyslipidemia and knee replacements about 1 and [address] Trinidad. ALLERGIES: NONE. MEDICATIONS: He had been on fish oil and now he is on; 1. Clindamycin. 2. Zosyn. 3. Vancomycin. SOCIAL HISTORY: Does not smoke. Never smoked cigarettes. No alcoholic beverages other than occasional. 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 FAMILY HISTORY: Noncontributory. PHYSICAL EXAMINATION: VITAL SIGNS: With T-max 98.1, blood pressure 150/70, pulse 82, respirations 22 , and O2 saturation 96. SKIN: Shows the areas of his circumferential erythema in the left leg and the left medial thigh, but not around the knee area. The right lower extremity appears normal. He does have edema in the left lower extremity, which is mild-to- moderate. No lymphadenopathy. HEENT: Ocular movements conjugate. Sclerae white. Pupils are equal. Nasal passages patent. Oral cavity is normal. Teeth in good shape. Gums in good shape. NECK: Supple. No jugular vein distention or carotid bruits. LUNGS: Symmetric clear breath sounds. HEART: S1 and S2. No S3 or S4. No murmurs. ABDOMEN: Soft, not distended or tender. No ascites. No bladder distention. EXTREMITIES: Pulses are 1+ in popliteal and dorsalis pedis and has 1+ edema in left lower extremity. There is marked limitation range of motion of the left knee with all of the pain and the left lower extremity being restricted to the knee side. It appears to have fluid inside. The other joints do not appear involved. NEUROLOGIC: His cognitive function appears to be intact. LABORATORY DATA: White cell count is 22.6, hemoglobin 14.9, and platelets 210 with 15% bands. Sodium 128, creatinine 1.03, bilirubin 1.7, AST 42, ALT 33, and albumin 4.1. Urinalysis with fairly unremarkable results except for protein of 70. There is a lower extremity CT with stranding subcutaneous tissues of calf anterior lower thigh, distention of suprapatellar bursa with thickening of the synovium. There is a tibia and fibula x-ray with soft tissue edema, but no osseous abnormality and vascular ultrasound with no evidence of deep vein thrombosis. The chest x-ray with borderline cardiomegaly and some perihilar infiltrates. ASSESSMENT: 1. Bilateral total knee replacements. 2. Inflammatory process, left lower extremity with erythema involving the leg and thigh. 3. Evidence of prepatellar fluid in the x-ray or CT scan. 4. Neutrophilia with bandemia. DISCUSSION: The differential diagnosis includes infection of the prepatellar bursa left side versus implant infection left side versus plain cellulitis. The clinical findings are consistent with infection of the implant. We will contact Dr. Trinidad for consultation. The patient may need sampling of the implant area. Switch him to Rocephin plus vancomycin. Discontinue Zosyn and clindamycin. If he does have prosthetic joint infection, he will need removal of the implant with probably one stage revision. If not then, it will be a much simpler process. Job ID: [id number] [facility]
[2019-04-04] MEDS: Famotidine 20 MG TAB PO SCH (20:11)
[2019-04-04] MEDS ORDERED: Vancomycin HCl 1 GM in Sodium Chloride 0.9% 250 ML 300 ML IVPB SCH (21:00)
[2019-04-04] MEDS ORDERED: Vancomycin HCl 1 GM in Premix Bag 1 BAG IVPB SCH (21:00)
[2019-04-04] MEDS ORDERED: Clindamycin/D5W 600 MG in Premix Bag 1 BAG IVPB SCH (22:00)
[2019-04-05] MEDS: Piperacillin/Tazobactam 4.5 GM in Sodium Chloride 0.9% 100 ML IVPB SCH ×3 (01:47→21:28)
[2019-04-05] MEDS: Acetaminophen 325 MG TAB PO PRN (03:45)
[2019-04-05 06:24] LABS: Band 8 % (5-11); Hemoglobin 12.1 g/dL (14.0-18.0); Lymphocytes 14 % (21-51); MDiff Complete? YES; Mean Corpuscular HGB CONC 31.5 g/dL (32.0-36.0); Mean Corpuscular Hemoglobin 30.2 pg (27.0-31.0); Mean Corpuscular Volume 95.9 fL (78.0-98.0); Mean Platelet Volume 6.5 fL (7.4-10.4); Monocytes 7 % (0-10); Neutrophil 71 % (42-75); Platelet Count 190 thou/uL (130-400); RBC Distribution Width 12.9 % (11.5-14.5); White Blood Cell (WBC) Count 15.8 thou/uL (4.8-10.8)
[2019-04-05 06:25] LABS: ALT (SGPT) 20 U/L (8-55); AST (SGOT) 27 U/L (5-34); Albumin 3.1 g/dL (3.4-4.8); Alkaline Phosphatase 47 U/L (40-150); Anion Gap 12 mmol/L (10-20); BUN (Urea Nitrogen) 13 mg/dL (8.4-25.7); Bilirubin, Total 1.6 mg/dL (0.2-1.2); Calc. Creatinine Clearance 88 mL/min (70-130); Calcium 8.4 mg/dL (7.8-10.44); Carbon Dioxide 20 mmol/L (23-31); Chloride 101 mmol/L (98-107); Estimated GFR-MDRD 87; Glucose 109 mg/dL (83-110); Protein, Total 6.1 g/dL (5.8-8.1); Sodium 130 mmol/L (136-145)
--- NOTE | 2019-04-05 08:15 | CON ---
DATE OF CONSULTATION: This is Tam Boggs PA-C dictating a report for Sohail Trinidad MD. We were asked by hospitalist to see patient. The patient came in yesterday with some redness to his left lower extremity, also some swelling to his knee. No recent illnesses that he attests to. He has been working out quite frequently and had no other falls or injuries. The leg just started to get red, swollen and painful and his knee started to get larger and larger yesterday. The son says with the induction of antibiotics over the last 24 hours, the swelling in the leg has been much better, but unfortunately has quite a bit of fluid in that knee still and it is painful to walk. PAST MEDICAL HISTORY: Positive for cholesterol, bilateral knee replacements. MEDICATIONS: Fish oil. ALLERGIES: NO KNOWN DRUG ALLERGIES. 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 No alcohol or nicotine products whatsoever. FAMILY HISTORY: For this visit is noncontributory. PAST SURGICAL HISTORY: Bilateral knee replacements. REVIEW OF SYSTEMS: Complaining of just left knee and leg pain right now. Otherwise, no chest pain, shortness of breath. No bowel or bladder problems. Rest review of systems negative. PHYSICAL EXAMINATION: GENERAL: Well-nourished, well-developed male, alert, pleasant, in no acute distress. Speech clear. Affect pleasant. Answers questions appropriately. He is alert and oriented x3. HEENT: Normal exam. Face symmetric. Tongue midline. NECK: Throat supple. Trachea midline. RESPIRATORY: No acute distress. Breathing normally. EXTREMITIES: Upper extremities equal size, shape, symmetry, normal bulk and tone. Right lower extremity, normal bulk and tone. Left lower extremity obvious light redness seen to the medial thigh into the calf and foot. Redness has dissipated per patient and son, but knee is still quite tender with obvious fluid seen. Bilateral lower extremity DP, PT pulses are intact. PROCEDURE: Performed by Dr. Trinidad. Area prepped. Needle inserted, obvious pus withdrawn. The patient tolerated the procedure well. ASSESSMENT: Left periprosthetic knee infection. PLAN: Dr. Trinidad spoke with the patient. Plan is to do a one stage revision this afternoon. Patient has been n.p.o. Dr. Mckinnon has seen him. He is on antibiotics. We will get him consented into the OR this afternoon. The patient and son understand the plan. They are both amenable to go forth with the plan. Job ID: [id number] [facility]
[2019-04-05] MEDS: Multivit, Therapeutic 1 TAB PO SCH (09:37)
[2019-04-05] MEDS: Fish Oil 1,000 MG CAP PO SCH (09:37)
[2019-04-05] MEDS: Famotidine 20 MG TAB PO SCH ×2 (09:37→19:45)
--- NOTE | 2019-04-05 11:46 | PDOC.HOSPP ---
- Subjective Subjective: Had his knee aspirated with jill pus per patient at bedside no sob or palp has knee left side pain - Objective Vital Signs & Weight: Vital Signs (12 hours) Temp Pulse Resp BP Pulse Ox 04/05/19 08:05 98.0 F 71 16 116/68 96 04/05/19 04:08 100.3 F H 75 16 134/66 95 04/05/19 00:30 99.5 F 92 18 135/65 96 Weight Weight 197 lb 15.954 oz I&O: 04/04/19 04/05/19 04/06/19 06:59 06:59 06:59 Intake Total 700 Output Total 600 Balance 100 Result Diagrams: 04/05/19 05:41 04/05/19 05:41 ROS - Review of Systems All systems: All other ROS were reviewed and found negative. - Medication Medications: Active Medications Generic Name Dose Route Start Last Admin Trade Name Freq PRN Reason Stop Dose Admin Acetaminophen 650 mg 04/04/19 13:52 04/05/19 03:45 Tylenol PO 650 mg Q4H PRN Administration Headache/Fever/Mild Pain (1-3) Famotidine 20 mg 04/04/19 21:00 04/05/19 09:37 Pepcid PO Not Given BID ANCELMO Fish Oil 1,000 mg 04/05/19 09:00 04/05/19 09:37 Fish Oil PO Not Given DAILY ANCELMO Sodium Chloride 1,000 mls @ 50 mls/hr 04/04/19 13:52 04/04/19 16:10 Normal Saline 0.9% IV 1,000 mls .Q20H ANCELMO Administration Vancomycin HCl 1 gm/ Device 200 mls @ 200 mls/hr 04/04/19 21:00 04/04/19 20: 11 IVPB 200 mls 2100 ANCELMO Administration Piperacillin Sod/Tazobactam 100 mls @ 200 mls/hr 04/04/19 17:00 04/05/19 09: 35 Sod 4.5 gm/ Sodium Chloride IVPB 100 mls 0100,0900,1700 ANCELMO Administration Multivitamins 1 tab 04/05/19 09:00 04/05/19 09:37 Theragran PO Not Given DAILY ANCELMO - Exam awake alert Eye: PERRL, anicteric sclera ENT: no oropharyngeal lesions, dry oral mucosa Neck: supple, no JVD Heart: RRR, no murmur Respiratory: no wheezes, rhonchi Gastrointestinal: soft, non-tender, non-distended, normal bowel sounds Extremities: 1+ LE edema (erythema++) Neurological: CN's grossly intact, no focal deficits Musculoskeletal: normal tone, normal strength Psychiatric: normal affect, A&O x 3 Hosp A/P (1) Septic arthritis of knee, left Code(s): M00.9 - PYOGENIC ARTHRITIS, UNSPECIFIED Status: Acute Qualifiers: Septic arthritis organism: due to unspecified organism Qualified Code(s): M00.9 - Pyogenic arthritis, unspecified (2) Sepsis Code(s): A41.9 - SEPSIS, UNSPECIFIED ORGANISM Status: Acute Qualifiers: Sepsis type: sepsis due to unspecified organism Qualified Code(s): A41.9 - Sepsis, unspecified organism (3) Cellulitis of left leg Code(s): L03.116 - CELLULITIS OF LEFT LOWER LIMB Status: Acute (4) BPH (benign prostatic hyperplasia) Code(s): N40.0 - BENIGN PROSTATIC HYPERPLASIA WITHOUT LOWER URINRY TRACT SYMP Status: Chronic Qualifiers: Lower urinary tract symptom presence: symptoms absent Qualified Code(s): N40.0 - Benign prostatic hyperplasia without lower urinary tract symptoms (5) Dyslipidemia Code(s): E78.5 - HYPERLIPIDEMIA, UNSPECIFIED Status: Chronic - Plan hemostable is npo for wash out and further procedures based on findings in OR today continue vanc and zosyn, fish oil, gentle iv hydration. Await echo finding
[2019-04-05 12:03] LABS: BF Color Yellow; Body Fluid Source Synovial Fluid; Clarity Cloudy/Turbid (Clear)
[2019-04-05 12:04] LABS: RBC Background Count 0.003; RBC Count-Automated 144000 /cumm; Tube # EDTA; WBC/NonHematic-Auto 77130 /cumm
[2019-04-05] MEDS ORDERED: Midazolam HCl 2 mg/2 ml Vial ONE (12:19)
[2019-04-05] MEDS ORDERED: Fentanyl 100 MCG/2 ML VIAL ONE (12:19)
[2019-04-05] MEDS ORDERED: Albuterol Sulfate 2.5 mg/3 ml Neb ONE (12:48)
[2019-04-05] MEDS ORDERED: Albuterol Sulfate 2.5 mg/3 ml Neb NEB SCH (13:00)
[2019-04-05] MEDS ORDERED: HYDROcodone/Acetaminophen 10/325 mg Tablet PO PRN ×2 (13:06)
[2019-04-05] MEDS ORDERED: traMADol HCl 50 MG TAB PO PRN (13:06)
[2019-04-05] MEDS ORDERED: Fentanyl 100 MCG/2 ML VIAL SLOW IVP PRN ×2 (13:06)
[2019-04-05] MEDS ORDERED: Tobramycin 80 MG/2 ML VIAL ONE (13:28)
[2019-04-05] MEDS ORDERED: Tobramycin Sulfate 1.2 GM VIAL ONE ×2 (13:49→13:50)
[2019-04-05] MEDS ORDERED: Midazolam HCl 5 mg/5 ml Vial ONE (14:18)
[2019-04-05] MEDS ORDERED: Ondansetron HCl/PF 4 MG/2 ML Vial IVP PRN (16:23)
[2019-04-05] MEDS ORDERED: Promethazine HCl 25 MG/ML VIAL SLOW IVP PRN (16:23)
[2019-04-05] MEDS ORDERED: Promethazine HCl 25 MG/ML VIAL IM PRN (16:23)
--- NOTE | 2019-04-05 16:42 | RAD ---
XR Knee Lt 2 View History: Postop Comparison: Knee CT prior day Findings: Interval excitation of the tibial component of the arthroplasty with antibiotic spacer. Exp ected postoperative gas and edema. Impression: Satisfactory postoperative appearance.
--- NOTE | 2019-04-05 18:17 | PRG ---
DATE OF SERVICE: 04/05/2019 SUBJECTIVE: The patient had an aspirate and it was abnormal, so Dr. Trinidad took out his implant, left side and put a spacer. PHYSICAL EXAMINATION: VITAL SIGNS: Show T-max 100.3. LUNGS: Clear. HEART: S1 and S2, regular rate. ABDOMEN: Soft. EXTREMITIES: Left knee with postoperative dressing, not removed. LABORATORY DATA: White cell count 15.8, hemoglobin 12, and platelets are 190, 71% neutrophils. Creatinine 0.85. Bilirubin 1.6. The Gram stain from the fluid shows gram-positive cocci in chains. ASSESSMENT AND DISCUSSION: Bilateral total knee replacements with inflammatory process, left lower extremity with infectious process, left total knee replacement, status post removal of the implant with spacer. The organism is going to returns supervisor to be either group B strep or enterococcus or another type of Streptococcus. Likely beta-hemolytic. Staphylococcus aureus is less likely, but not ruled out. We will wait for the final identification. In the meantime, he will remain on vancomycin, but we will discontinue Zosyn and switch him to Rocephin instead. Job ID: [id number]
[2019-04-05] MEDS: Enoxaparin Sodium 40 MG/0.4 ML SYRINGE SC SCH (19:26)
[2019-04-05] MEDS: Vancomycin HCl 1 GM in Premix Bag 1 BAG IVPB SCH (19:40)
[2019-04-05] MEDS: cefTRIAXone\\ROCEPHIN 2 GM in Sodium Chloride 0.9% 100 ML IVPB SCH (21:37)
[2019-04-05] MEDS: Sodium Chloride 0.9% 1,000 ML IV SCH (21:37)
[2019-04-06] MEDS: traMADol HCl 50 MG TAB PO PRN (04:58)
[2019-04-06] MEDS: Acetaminophen 325 MG TAB PO PRN (04:58)
[2019-04-06] MEDS: Guaifenesin DM 100-10/5 ML UDCUP PO PRN ×3 (05:54→22:32)
[2019-04-06] MEDS: Sodium Chloride 0.9% 1,000 ML IV SCH (05:55)
[2019-04-06] MEDS: Vancomycin HCl 1 GM in Premix Bag 1 BAG IVPB SCH ×2 (05:55→17:27)
[2019-04-06] MEDS: Multivit, Therapeutic 1 TAB PO SCH (08:41)
[2019-04-06] MEDS: Enoxaparin Sodium 40 MG/0.4 ML SYRINGE SC SCH (08:41)
[2019-04-06] MEDS: Fish Oil 1,000 MG CAP PO SCH (08:41)
[2019-04-06] MEDS: Famotidine 20 MG TAB PO SCH ×2 (08:41→20:45)
[2019-04-06 09:38] LABS: Hemoglobin 12.4 g/dL (14.0-18.0); Mean Corpuscular Hemoglobin 33.3 pg (27.0-31.0); Mean Corpuscular Volume 95.1 fL (78.0-98.0); Mean Platelet Volume 6.5 fL (7.4-10.4); Platelet Count 201 thou/uL (130-400); RBC Distribution Width 12.7 % (11.5-14.5); Red Blood Cell (RBC) Count 3.71 mill/uL (4.70-6.10); White Blood Cell (WBC) Count 15.3 thou/uL (4.8-10.8)
[2019-04-06 10:50] LABS: Band 19 % (5-11); Lymphocytes 18 % (21-51); MDiff Complete? YES; Monocytes 9 % (0-10); Neutrophil 51 % (42-75); RBC Morphology Normal; Reactive Lymphocytes 3 % (0-10)
--- NOTE | 2019-04-06 15:52 | SPC ---
Sonographic guided left upper extremity PICC placement HISTORY: Knee infection. Need for long-term antibiotics. FINDINGS: After explaining the procedure and answering all questions, the left upper extremity was pr epped and draped in usual sterile fashion. Sterile technique, buffered local anesthesia, sonographic guidance, and a 22-gauge needle were used to carefully access the left basilic vein. Carter dard technique was used to place the tip of a 5 [place] single lumen PICC so that the tip lies at the level of the cavoatrial junction. Catheter was flushed and secured externally. Patient tolerated the procedure well and was returned in unchanged condition. Fluoroscopy time 0 seconds. IMPRESSION: Left upper extremity PICC is ready for use.
--- NOTE | 2019-04-06 16:13 | PDOC.HOSPP ---
- Subjective Subjective: feels better, left knee pain is better has not ambulated yet no fever, eating well. - Objective Vital Signs & Weight: Vital Signs (12 hours) Temp Pulse Resp BP Pulse Ox 04/06/19 15:41 98.5 F 81 18 168/84 H 97 04/06/19 10:45 97.5 F L 79 16 137/71 97 04/06/19 08:00 97 04/06/19 07:35 98.2 F 73 14 131/69 95 04/06/19 04:25 99.1 F 83 18 143/75 H 95 Weight Weight 197 lb 15.954 oz I&O: 04/05/19 04/06/19 04/07/19 06:59 06:59 06:59 Intake Total 700 1050 Output Total 600 550 Balance 100 500 Result Diagrams: 04/06/19 09:27 04/05/19 05:41 ROS - Review of Systems All systems: All other ROS were reviewed and found negative. - Medication Medications: Active Medications Generic Name Dose Route Start Last Admin Trade Name Freq PRN Reason Stop Dose Admin Acetaminophen 650 mg 04/04/19 13:52 04/06/19 04:58 Tylenol PO 650 mg Q4H PRN Administration Headache/Fever/Mild Pain (1-3) Enoxaparin Sodium 40 mg 04/05/19 09:00 04/06/19 08:41 Lovenox SC 40 mg 0900 ANCELMO Administration Famotidine 20 mg 04/04/19 21:00 04/06/19 08:41 Pepcid PO 20 mg BID ANCELMO Administration Fish Oil 1,000 mg 04/05/19 09:00 04/06/19 08:41 Fish Oil PO 1,000 mg DAILY ANCELMO Administration Guaifenesin/Dextromethorphan 15 ml 04/04/19 13:52 04/06/19 05:54 Robitussin Dm PO 15 ml Q4H PRN Administration Cough Sodium Chloride 1,000 mls @ 50 mls/hr 04/04/19 13:52 04/06/19 05:55 Normal Saline 0.9% IV Not Given .Q20H ANCELMO Vancomycin HCl 1 gm/ Device 200 mls @ 200 mls/hr 04/05/19 17:00 04/06/19 05: 55 IVPB 200 mls 0500,1700 ANCELMO Administration Ceftriaxone Sodium 2 gm/ 100 mls @ 200 mls/hr 04/05/19 18:00 04/05/19 21:37 Sodium Chloride IVPB 100 mls Q24HR ANCELMO Administration Multivitamins 1 tab 04/05/19 09:00 04/06/19 08:41 Theragran PO 1 tab DAILY ANCELMO Administration Tramadol HCl 100 mg 04/05/19 13:06 04/06/19 04:58 Ultram PO 100 mg Q6H PRN Administration Moderate Pain (4-6) - Exam NAD, awake alert Eye: PERRL, anicteric sclera ENT: no oropharyngeal lesions, moist mucosa Neck: supple, no JVD Heart: RRR, no murmur Respiratory: no wheezes, no rales, no ronchi Gastrointestinal: soft, non-tender, normal bowel sounds Extremities: no cyanosis, 1+ LE edema (left leg erythema is receding, left knee in dresssing) Neurological: CN's grossly intact, no focal deficits Musculoskeletal: normal tone, normal strength Psychiatric: normal affect, A&O x 3 Hosp A/P (1) Septic arthritis of knee, left Code(s): M00.9 - PYOGENIC ARTHRITIS, UNSPECIFIED Status: Acute Qualifiers: Septic arthritis organism: due to unspecified organism Qualified Code(s): M00.9 - Pyogenic arthritis, unspecified Plan: s/p surgery 04/05/2019 (2) Sepsis Code(s): A41.9 - SEPSIS, UNSPECIFIED ORGANISM Status: Acute Qualifiers: Sepsis type: sepsis due to unspecified organism Qualified Code(s): A41.9 - Sepsis, unspecified organism (3) Cellulitis of left leg Code(s): L03.116 - CELLULITIS OF LEFT LOWER LIMB Status: Acute (4) BPH (benign prostatic hyperplasia) Code(s): N40.0 - BENIGN PROSTATIC HYPERPLASIA WITHOUT LOWER URINRY TRACT SYMP Status: Chronic Qualifiers: Lower urinary tract symptom presence: symptoms absent Qualified Code(s): N40.0 - Benign prostatic hyperplasia without lower urinary tract symptoms (5) Dyslipidemia Code(s): E78.5 - HYPERLIPIDEMIA, UNSPECIFIED Status: Chronic - Plan is going for picc line today, his left forearm iv is infiltrated, needs to be removed on ceftriaxone and vanc prelim cultures from knee are growing strep, likely other organisms, await full results will have a knee immobilizer per patient PT to mobilize per ortho adv ?likely will need placement if he didn't ambulate much, was very functional before If he ambulates well then iv antibiotics need to be arranged at home per . hemostable, I have given updates to Patient and his room mate at bedside continue fish oil. Echo has not shown any vegetations, blood cs are -ve so far
[2019-04-06] MEDS ORDERED: hydrALAZINE 20 MG/ML VIAL SLOW IVP PRN ×2 (18:31→18:34)
--- NOTE | 2019-04-06 18:38 | PRG ---
DATE OF SERVICE: 04/06/2019 SUBJECTIVE: Transferred to the floor. He is wheezing a little bit, having a little bit of coughing spells, but no dyspnea. Mild pain in the left knee. No headaches. No vomiting. No abdominal pain. Still has a Sprague catheter in place. I's and O's have been 100 and 500 positive. OBJECTIVE: GENERAL: He is awake, alert, and oriented. HEENT: Ocular movements are normal. Oral cavity is moist. NECK: Supple. LUNGS: Symmetric. Air entry is very faint. Expiratory wheezing at the bases. No crackles. HEART: S1 and S2. Regular rate. No S3 or S4. ABDOMEN: Soft, mildly distended. No ascites. No bladder distention. EXTREMITIES: Erythema, left leg with 2+ edema. Left knee area is dressed. LABORATORY DATA: White cell count 15.3, hemoglobin 12.4, platelets 201. CRP 26.25. Microbiology with group G Streptococcus from the knee aspirate. ASSESSMENT AND DISCUSSION: Bilateral knee replacements and inflammatory process, left total knee replacement site with group G Streptococcus. The patient had removal of the implant and placement of a spacer and he probably would be able to keep this for functional results and continue Rocephin 2 g daily and date of therapy will be May 20 and weekly CBC, CRP, comprehensive metabolic panel. After completion of the 42 days, then transition to oral Keflex and rifampin given for 3 months after that and just Keflex suppressive low-dose therapy. Job ID: [id number]
[2019-04-06] MEDS: cefTRIAXone\\ROCEPHIN 2 GM in Sodium Chloride 0.9% 100 ML IVPB SCH (19:03)
[2019-04-07] MEDS: Sodium Chloride 0.9% 1,000 ML IV SCH (00:56)
[2019-04-07] MEDS: Acetaminophen 325 MG TAB PO PRN (04:26)
[2019-04-07] MEDS: traMADol HCl 50 MG TAB PO PRN (04:27)
[2019-04-07 04:54] LABS: Vancomycin, Trough 9.7 ug/mL
[2019-04-07 04:56] LABS: Anion Gap 10 mmol/L (10-20); BUN (Urea Nitrogen) 8 mg/dL (8.4-25.7); Calc. Creatinine Clearance 107 mL/min (70-130); Calcium 8.5 mg/dL (7.8-10.44); Carbon Dioxide 25 mmol/L (23-31); Chloride 96 mmol/L (98-107); Estimated GFR-MDRD Greater than 90; Glucose 111 mg/dL (83-110); Sodium 128 mmol/L (136-145)
[2019-04-07 05:07] LABS: Band 9 % (5-11); Hemoglobin 11.6 g/dL (14.0-18.0); Lymphocytes 16 % (21-51); MDiff Complete? YES; Mean Corpuscular HGB CONC 35.7 g/dL (32.0-36.0); Mean Corpuscular Hemoglobin 33.7 pg (27.0-31.0); Mean Corpuscular Volume 94.4 fL (78.0-98.0); Mean Platelet Volume 6.7 fL (7.4-10.4); Monocytes 6 % (0-10); Neutrophil 69 % (42-75); Platelet Count 204 thou/uL (130-400); Potassium 2.8 mmol/L (3.5-5.1); RBC Distribution Width 12.8 % (11.5-14.5); Red Blood Cell (RBC) Count 3.45 mill/uL (4.70-6.10); Toxic Granulation SLIGHT; White Blood Cell (WBC) Count 13.7 thou/uL (4.8-10.8)
[2019-04-07] MEDS ORDERED: Potassium Chloride 20 MEQ TAB PO SCH ×2 (06:15→09:00)
--- NOTE | 2019-04-07 10:07 | OP ---
DATE OF PROCEDURE: 04/05/2019 PREOPERATIVE DIAGNOSIS: Pyogenic periprosthetic arthritis, left knee. POSTOPERATIVE DIAGNOSIS: Pyogenic periprosthetic arthritis, left knee. OPERATIVE PROCEDURE: Single-stage revision arthroplasty, left knee. SOFTWARE QUALITY ASSURANCE ENGINEER: Conner Ball PA-C. ANESTHESIA: General via LMA. COMPONENTS USED: 1. [employer] triathlon, size 6 all-poly tibial component, 9 mm thickness with a size 6 cruciate sparing cemented femoral component. 2. Antibiotic impregnated cement. ESTIMATED BLOOD LOSS: 100 mL. FINDINGS: Purulent effusion of left knee, hypertrophic synovium, pyogenic subarticular changes of the bone and cement interface. TOURNIQUET TIME: 68 minutes at 300 mmHg. DRAINS: None. SPECIMENS: None. COMPLICATIONS: None. COUNTS: Correct. INDICATION FOR SURGERY: Madi is an 78-year-old white male, who has had acute onset of left knee pain, which has been progressive in nature and he has run some fevers and developed a white count. Arthrocentesis was performed. It was diagnostic for a purulent effusion, and Dr. Mckinnon has consulted our service for orthopedic management of this problem. DESCRIPTION OF PROCEDURE: After informed consent was obtained in the preoperative holding area, the patient was taken to the operative suite, where he received preoperative antibiotics. He was positioned appropriately on the operating table and general anesthesia was induced. LMA was placed. Once adequate level of anesthesia was obtained, the patient was positioned appropriately, and a well-padded tourniquet was placed over the left proximal thigh. Tourniquet was raised, where it remained for the remainder of the case, and prior to incision, a time-out was called and all members of Surgical Team agreed upon site, surgeon, and the patient. After this, a midline incision was made directly over the patella, extending and encompassing the patient's old incision fully. The subdermal layer was undermined sharply and all bleeders were encountered and the tissues were found to be hyperemic and swollen. Fair amount of edema also encompassed this. A median parapatellar arthrotomy was then carried out and we encountered significant pyogenic effusion with brown purulent material exiting the wound. The arthrotomy was then developed and we performed a subtotal synovectomy, and after establishing exposure, attention was then turned to explantation of his triathlon total knee. We used the reciprocating saw to undermine the anterior flanges and intercondylar region. Osteotomes were then used to loosen the mantle and we achieved explantation and we had excellent remainder of bone stock on the femur. Polyethylene was then removed and explantation of the tibia was carried out through a series of reciprocating saw and osteotomes. We also still had a nice bone stock in the tibia, but we did find a loculated bone loss just anterior to the posterior cruciate ligament, which was preserved. A rongeur was used to clean up all the periarticular spaces and gutters. The entire wound was then copiously irrigated with pulsatile lavage saline to include 3 L. The oscillating saw was used to remove the patelloplasty and clean up the cement with a series of rongeurs and curettage. After the patella was cleaned and the entire wound was copiously irrigated, we then placed the knee into high flexion with a Hohmann and posterior cruciate ligament retractor in place and implanted using antibiotic impregnated cement and all-poly tibia. This was cemented and malleted squarely in place. We then turned our attention to femoral implantation, which was used with antibiotic cement. We left the patella without revision and cleaned of bone. Primary closure was accomplished with a running Quill #2 stitch as well as a series of interrupted Vicryl #2 stitch. The subcutaneous layer was closed with a running 0 Quill, and we used #2 Prolene to close the skin in a running fashion. Sterile dressing was applied. The procedure was terminated without complication. Range of motion was from 0 to 130 degrees and the patient's knee was stable to varus and valgus stressing as well as drawer. Full range of motion was reestablished. After completion of the procedure, the patient was awakened in the operative suite. LMA was removed. He was taken to recovery room in stable condition. Job ID: [id number]
[2019-04-07] MEDS: Potassium Chloride 20 MEQ TAB PO SCH ×3 (10:45→20:02)
[2019-04-07] MEDS: Fish Oil 1,000 MG CAP PO SCH (10:46)
[2019-04-07] MEDS: Multivit, Therapeutic 1 TAB PO SCH (10:46)
[2019-04-07] MEDS: Famotidine 20 MG TAB PO SCH ×2 (10:46→20:02)
[2019-04-07] MEDS: Enoxaparin Sodium 40 MG/0.4 ML SYRINGE SC SCH (10:47)
[2019-04-07] MEDS: Guaifenesin DM 100-10/5 ML UDCUP PO PRN ×3 (11:19→21:09)
--- NOTE | 2019-04-07 12:39 | PDOC.HOSPP ---
- Subjective Subjective: is seen ambulating in hallway, pain is better no chest pain or sob has dry cough - Objective Vital Signs & Weight: Vital Signs (12 hours) Temp Pulse Resp BP Pulse Ox 04/07/19 10:57 98.1 F 72 18 157/76 H 96 04/07/19 08:00 97.7 F 77 20 145/75 H 96 04/07/19 07:42 70 16 04/07/19 04:18 70 188/72 H 04/07/19 00:40 72 12 Weight Weight 197 lb 15.954 oz I&O: 04/06/19 04/07/19 04/08/19 06:59 06:59 06:59 Intake Total 1050 1650 Output Total 550 900 Balance 500 750 Result Diagrams: 04/07/19 04:27 04/07/19 04:27 ROS - Review of Systems All systems: All other ROS were reviewed and found negative. - Medication Medications: Active Medications Generic Name Dose Route Start Last Admin Trade Name Freq PRN Reason Stop Dose Admin Acetaminophen 650 mg 04/04/19 13:52 04/07/19 04:26 Tylenol PO 650 mg Q4H PRN Administration Headache/Fever/Mild Pain (1-3) Albuterol/Ipratropium 3 ml 04/06/19 19:00 04/07/19 07:42 Duoneb NEB 3 ml [id number] ANCELMO Administration Enoxaparin Sodium 40 mg 04/05/19 09:00 04/07/19 10:47 Lovenox SC 40 mg 0900 ANCELMO Administration Famotidine 20 mg 04/04/19 21:00 04/07/19 10:46 Pepcid PO 20 mg BID ANCELMO Administration Fish Oil 1,000 mg 04/05/19 09:00 04/07/19 10:46 Fish Oil PO 1,000 mg DAILY ANCELMO Administration Guaifenesin/Dextromethorphan 15 ml 04/04/19 13:52 04/07/19 11:19 Robitussin Dm PO 15 ml Q4H PRN Administration Cough Ceftriaxone Sodium 2 gm/ 100 mls @ 200 mls/hr 04/05/19 18:00 04/06/19 19:03 Sodium Chloride IVPB 100 mls Q24HR ANCELMO Administration Multivitamins 1 tab 04/05/19 09:00 04/07/19 10:46 Theragran PO 1 tab DAILY ANCELMO Administration Potassium Chloride 40 meq 04/07/19 08:30 04/07/19 10:45 K-Dur PO 04/08/19 02:31 Not Given Q6H ANCELMO Sodium Chloride 10 ml 04/06/19 21:00 04/07/19 10:47 Flush - Normal Saline IVF 10 ml Q12HR ANCELMO Administration Tramadol HCl 100 mg 04/05/19 13:06 04/07/19 04:27 Ultram PO 100 mg Q6H PRN Administration Moderate Pain (4-6) - Exam NAD, awake alert Eye: PERRL, anicteric sclera ENT: normocephalic atraumatic, no oropharyngeal lesions Neck: supple, no JVD Heart: RRR, no gallops Respiratory: no wheezes, rhonchi Gastrointestinal: soft, non-tender, normal bowel sounds Extremities: no cyanosis, no edema Skin: no lesions (left leg erythema and edema+) Neurological: CN's grossly intact, no focal deficits Musculoskeletal: normal tone, normal strength Psychiatric: normal affect, A&O x 3 Hosp A/P (1) Septic arthritis of knee, left Code(s): M00.9 - PYOGENIC ARTHRITIS, UNSPECIFIED Status: Acute Qualifiers: Septic arthritis organism: streptococcal Qualified Code(s): M00.262 - Other streptococcal arthritis, left knee (2) Sepsis Code(s): A41.9 - SEPSIS, UNSPECIFIED ORGANISM Status: Acute Qualifiers: Sepsis type: Streptococcus, other Qualified Code(s): A40.8 - Other streptococcal sepsis (3) Cellulitis of left leg Code(s): L03.116 - CELLULITIS OF LEFT LOWER LIMB Status: Acute (4) BPH (benign prostatic hyperplasia) Code(s): N40.0 - BENIGN PROSTATIC HYPERPLASIA WITHOUT LOWER URINRY TRACT SYMP Status: Chronic Qualifiers: Lower urinary tract symptom presence: symptoms absent Qualified Code(s): N40.0 - Benign prostatic hyperplasia without lower urinary tract symptoms (5) Dyslipidemia Code(s): E78.5 - HYPERLIPIDEMIA, UNSPECIFIED Status: Chronic - Plan is on ceftriaxone, wound cultures have grown strep gr G has picc line, antibiotics till sept 6th CM for help with setting up of outpt antibiotics. He is ambulating, likely can go home with HH, await PT opinion
[2019-04-07] MEDS: Furosemide 20 MG/2 ML VIAL SLOW IVP SCH (13:38)
[2019-04-07] MEDS: cefTRIAXone\\ROCEPHIN 2 GM in Sodium Chloride 0.9% 100 ML IVPB SCH (17:21)
[2019-04-08] MEDS: Potassium Chloride 20 MEQ TAB PO SCH (02:24)
[2019-04-08] MEDS ORDERED: Lorazepam 1 MG TAB PO SCH (04:15)
[2019-04-08] MEDS: Benzonatate 100 MG CAP PO PRN ×2 (04:39→19:38)
[2019-04-08] MEDS: Furosemide 20 MG/2 ML VIAL SLOW IVP SCH ×2 (04:40→15:37)
[2019-04-08 05:00] LABS: Lactic Acid 1.5 mmol/L (0.5-2.2)
[2019-04-08 05:03] LABS: Band 7 % (5-11); Eosinophils 1 % (0-10); Hemoglobin 12.3 g/dL (14.0-18.0); Lymphocytes 9 % (21-51); MDiff Complete? YES; Mean Corpuscular HGB CONC 35.1 g/dL (32.0-36.0); Mean Corpuscular Hemoglobin 33.2 pg (27.0-31.0); Mean Corpuscular Volume 94.4 fL (78.0-98.0); Mean Platelet Volume 6.7 fL (7.4-10.4); Monocytes 5 % (0-10); Neutrophil 78 % (42-75); Platelet Count 256 thou/uL (130-400); Platelet Morphology Comment Appears Adequate; RBC Distribution Width 12.9 % (11.5-14.5); Red Blood Cell (RBC) Count 3.71 mill/uL (4.70-6.10); White Blood Cell (WBC) Count 16.9 thou/uL (4.8-10.8)
[2019-04-08 05:06] LABS: ALT (SGPT) 37 U/L (8-55); AST (SGOT) 60 U/L (5-34); Albumin 3.2 g/dL (3.4-4.8); Alkaline Phosphatase 57 U/L (40-150); Anion Gap 14 mmol/L (10-20); BUN (Urea Nitrogen) 9 mg/dL (8.4-25.7); Bilirubin, Total 1.1 mg/dL (0.2-1.2); Calc. Creatinine Clearance 108 mL/min (70-130); Calcium 8.7 mg/dL (7.8-10.44); Carbon Dioxide 22 mmol/L (23-31); Chloride 94 mmol/L (98-107); Estimated GFR-MDRD Greater than 90; Globulin 3.5 g/dL (2.4-3.5); Glucose 116 mg/dL (83-110); Potassium 3.6 mmol/L (3.5-5.1); Protein, Total 6.7 g/dL (5.8-8.1); Sodium 126 mmol/L (136-145)
[2019-04-08] MEDS: Fish Oil 1,000 MG CAP PO SCH (07:52)
[2019-04-08] MEDS: Famotidine 20 MG TAB PO SCH ×2 (07:52→19:37)
[2019-04-08] MEDS: Multivit, Therapeutic 1 TAB PO SCH (07:52)
[2019-04-08] MEDS: Enoxaparin Sodium 40 MG/0.4 ML SYRINGE SC SCH (07:53)
--- NOTE | 2019-04-08 08:04 | RAD ---
EXAM: CHEST ONE VIEW HISTORY: Productive cough and shortness of breath. COMPARISON: 04/04/2019 FINDINGS: Left-sided PICC line is now noted in place with tip overlying the SVC. The cardiac silhouette is magn ified by projection but does appear enlarged and stable in size. Pulmonary vasculature is at the upper limits of normal. Again noted is mild increase in perihilar interstitial densities. The left la teral costophrenic angle is excluded from view. No obvious pleural effusion is appreciated. Degenerative changes are again seen in the spine with severe left glenohumeral osteoarthropathy again present. No significant interval change from prior exam. IMPRESSION: 1. Mild prominence of perihilar interstitial densities which could be related to an element of mild p ulmonary edema versus infectious process. 2. Mild cardiomegaly. 3. Interval placement of left-sided PICC line.
--- NOTE | 2019-04-08 14:00 | PDOC.HOSPP ---
- Subjective Subjective: was confused and agitated overnight and has a sitter at present currently is oriented and calm, his room mate and POA at bedside sob is better after lasix has cough+ is working with PT and ambulating - Objective Vital Signs & Weight: Vital Signs (12 hours) Temp Pulse Resp BP Pulse Ox 04/08/19 11:33 87 16 95 04/08/19 11:17 98.3 F 82 18 133/72 95 04/08/19 07:18 97.8 F 92 18 164/77 H 95 04/08/19 06:45 92 16 95 04/08/19 04:17 98 F 103 H 20 173/91 H 95 Weight Weight 197 lb 15.954 oz I&O: 04/07/19 04/08/19 04/09/19 06:59 06:59 06:59 Intake Total 1650 320 Output Total 900 1550 Balance 750 -1230 Result Diagrams: 04/08/19 04:19 04/08/19 04:19 Additional Labs: Accuchecks 04/08/19 03:33 POC Glucose 117 H ROS - Review of Systems All systems: All other ROS were reviewed and found negative. - Medication Medications: Active Medications Generic Name Dose Route Start Last Admin Trade Name Freq PRN Reason Stop Dose Admin Acetaminophen 650 mg 04/04/19 13:52 04/07/19 04:26 Tylenol PO 650 mg Q4H PRN Administration Headache/Fever/Mild Pain (1-3) Albuterol/Ipratropium 3 ml 04/08/19 06:30 04/08/19 11:33 Duoneb NEB 3 ml [id number] ANCELMO Administration Benzonatate 100 mg 04/08/19 04:08 04/08/19 04:39 Tessalon PO 100 mg TIDPRN PRN Administration Cough Enoxaparin Sodium 40 mg 04/05/19 09:00 04/08/19 07:53 Lovenox SC 40 mg 0900 ANCELMO Administration Famotidine 20 mg 04/04/19 21:00 04/08/19 07:52 Pepcid PO 20 mg BID ANCELMO Administration Fish Oil 1,000 mg 04/05/19 09:00 04/08/19 07:52 Fish Oil PO 1,000 mg DAILY ANCELMO Administration Furosemide 20 mg 04/07/19 14:00 04/08/19 04:40 Lasix SLOW IVP 20 mg 0600,1400 ANCELMO Administration Guaifenesin/Dextromethorphan 15 ml 04/04/19 13:52 04/07/19 21:09 Robitussin Dm PO 15 ml Q4H PRN Administration Cough Ceftriaxone Sodium 2 gm/ 100 mls @ 200 mls/hr 04/05/19 18:00 04/07/19 17:21 Sodium Chloride IVPB 100 mls Q24HR ANCELMO Administration Multivitamins 1 tab 04/05/19 09:00 04/08/19 07:52 Theragran PO 1 tab DAILY ANCELMO Administration Sodium Chloride 10 ml 04/06/19 21:00 04/08/19 07:57 Flush - Normal Saline IVF 10 ml Q12HR ANCELMO Administration Tramadol HCl 100 mg 04/05/19 13:06 04/07/19 04:27 Ultram PO 100 mg Q6H PRN Administration Moderate Pain (4-6) - Exam NAD, awake alert Eye: PERRL, anicteric sclera ENT: no oropharyngeal lesions, dry oral mucosa Neck: supple, no JVD Heart: RRR, no murmur Respiratory: normal chest expansion, rales, rhonchi Gastrointestinal: soft, non-tender, normal bowel sounds Extremities: no cyanosis, no clubbing Skin: normal turgor, no lesions Neurological: CN's grossly intact, no focal deficits Psychiatric: normal affect, A&O x 3 Hosp A/P (1) Septic arthritis of knee, left Code(s): M00.9 - PYOGENIC ARTHRITIS, UNSPECIFIED Status: Acute Qualifiers: Septic arthritis organism: streptococcal Qualified Code(s): M00.262 - Other streptococcal arthritis, left knee (2) Sepsis Code(s): A41.9 - SEPSIS, UNSPECIFIED ORGANISM Status: Acute Qualifiers: Sepsis type: Streptococcus, other Qualified Code(s): A40.8 - Other streptococcal sepsis (3) Cellulitis of left leg Code(s): L03.116 - CELLULITIS OF LEFT LOWER LIMB Status: Acute (4) BPH (benign prostatic hyperplasia) Code(s): N40.0 - BENIGN PROSTATIC HYPERPLASIA WITHOUT LOWER URINRY TRACT SYMP Status: Chronic Qualifiers: Lower urinary tract symptom presence: symptoms absent Qualified Code(s): N40.0 - Benign prostatic hyperplasia without lower urinary tract symptoms (5) Dyslipidemia Code(s): E78.5 - HYPERLIPIDEMIA, UNSPECIFIED Status: Chronic - Plan hemsotable, didn't sleep last night cognitively is better this morning and follows verbal stimuli, is walking in hallway with PT continue lasix x 4 doses, duoneb on fish oil, ceftriaxone awaiting swing bed, may dc sitter if he remains calm through out the day
[2019-04-08] MEDS: cefTRIAXone\\ROCEPHIN 2 GM in Sodium Chloride 0.9% 100 ML IVPB SCH (18:17)
[2019-04-08] MEDS: diphenhydrAMINE 50 MG CAP PO SCH (19:37)
[2019-04-08] MEDS: Guaifenesin DM 100-10/5 ML UDCUP PO PRN (19:38)
[2019-04-09] MEDS: Furosemide 20 MG/2 ML VIAL SLOW IVP SCH ×2 (05:52→15:37)
[2019-04-09] MEDS: Benzonatate 100 MG CAP PO PRN (05:54)
[2019-04-09 08:12] LABS: Hemoglobin 11.4 g/dL (14.0-18.0); Mean Corpuscular HGB CONC 34.4 g/dL (32.0-36.0); Mean Corpuscular Hemoglobin 32.2 pg (27.0-31.0); Mean Corpuscular Volume 93.6 fL (78.0-98.0); Mean Platelet Volume 6.8 fL (7.4-10.4); Platelet Count 304 thou/uL (130-400); RBC Distribution Width 12.9 % (11.5-14.5); Red Blood Cell (RBC) Count 3.52 mill/uL (4.70-6.10); White Blood Cell (WBC) Count 15.9 thou/uL (4.8-10.8)
[2019-04-09 08:29] LABS: Hypochromia SLIGHT = 6-15 cells (100X) (0-5/hpf); Lymphocytes 11 % (21-51); MDiff Complete? YES; Monocytes 3 % (0-10); Neutrophil 82 % (42-75); Platelet Morphology Comment Appears Adequate; Polychromasia SLIGHT = 2-3 cells (100X) (0-2/hpf); Reactive Lymphocytes 3 % (0-10); Toxic Granulation SLIGHT
[2019-04-09] MEDS: Famotidine 20 MG TAB PO SCH ×2 (09:40→21:15)
[2019-04-09] MEDS: Fish Oil 1,000 MG CAP PO SCH (09:40)
[2019-04-09] MEDS: Guaifenesin DM 100-10/5 ML UDCUP PO PRN (09:41)
[2019-04-09] MEDS: Multivit, Therapeutic 1 TAB PO SCH (09:41)
[2019-04-09] MEDS: Enoxaparin Sodium 40 MG/0.4 ML SYRINGE SC SCH (09:42)
[2019-04-09 10:06] LABS: Anion Gap 14 mmol/L (10-20); BUN (Urea Nitrogen) 11 mg/dL (8.4-25.7); Calc. Creatinine Clearance 110 mL/min (70-130); Calcium 8.3 mg/dL (7.8-10.44); Carbon Dioxide 23 mmol/L (23-31); Chloride 91 mmol/L (98-107); Estimated GFR-MDRD Greater than 90; Glucose 109 mg/dL (83-110); Potassium 3.7 mmol/L (3.5-5.1); Sodium 124 mmol/L (136-145)
--- NOTE | 2019-04-09 12:42 | PDOC.HOSPP ---
- Subjective Subjective: is more alert, awake and calm this am his friend at bedside no sob, still has cough+, no sputum production - Objective Vital Signs & Weight: Vital Signs (12 hours) Temp Pulse Resp BP Pulse Ox 04/09/19 11:40 77 16 04/09/19 11:35 98.9 F 76 18 131/78 96 04/09/19 08:00 97.6 F 74 18 165/82 H 96 04/09/19 03:58 98 F 79 16 151/84 H 95 04/09/19 02:41 76 16 94 L Weight Weight 197 lb 15.954 oz I&O: 04/08/19 04/09/19 04/10/19 06:59 06:59 06:59 Intake Total 320 420 Output Total 1550 Balance -1230 420 Result Diagrams: 04/09/19 07:39 04/09/19 09:34 ROS - Review of Systems All systems: All other ROS were reviewed and found negative. - Medication Medications: Active Medications Generic Name Dose Route Start Last Admin Trade Name Freq PRN Reason Stop Dose Admin Acetaminophen 650 mg 04/04/19 13:52 04/07/19 04:26 Tylenol PO 650 mg Q4H PRN Administration Headache/Fever/Mild Pain (1-3) Albuterol/Ipratropium 3 ml 04/08/19 06:30 04/09/19 11:40 Duoneb NEB 3 ml [id number] ANCELMO Administration Benzonatate 100 mg 04/08/19 04:08 04/09/19 05:54 Tessalon PO 100 mg TIDPRN PRN Administration Cough Diphenhydramine HCl 50 mg 04/08/19 21:00 04/08/19 19:37 Benadryl PO 50 mg HS ANCELMO Administration Enoxaparin Sodium 40 mg 04/05/19 09:00 04/09/19 09:42 Lovenox SC 40 mg 0900 ANCELMO Administration Famotidine 20 mg 04/04/19 21:00 04/09/19 09:40 Pepcid PO 20 mg BID ANCELMO Administration Fish Oil 1,000 mg 04/05/19 09:00 04/09/19 09:40 Fish Oil PO 1,000 mg DAILY ANCELMO Administration Furosemide 20 mg 04/07/19 14:00 04/09/19 05:52 Lasix SLOW IVP 20 mg 0600,1400 ANCELMO Administration Guaifenesin/Dextromethorphan 15 ml 04/04/19 13:52 04/09/19 09:41 Robitussin Dm PO 15 ml Q4H PRN Administration Cough Ceftriaxone Sodium 2 gm/ 100 mls @ 200 mls/hr 04/05/19 18:00 04/08/19 18:17 Sodium Chloride IVPB 100 mls Q24HR ANCELMO Administration Multivitamins 1 tab 04/05/19 09:00 04/09/19 09:41 Theragran PO 1 tab DAILY ANCELMO Administration Sodium Chloride 10 ml 04/06/19 21:00 04/09/19 09:49 Flush - Normal Saline IVF 10 ml Q12HR ANCELMO Administration Sodium Chloride 10 ml 04/06/19 18:40 04/09/19 05:52 Flush - Normal Saline IVF 10 ml PRN PRN Administration Saline Flush Tramadol HCl 100 mg 04/05/19 13:06 04/07/19 04:27 Ultram PO 100 mg Q6H PRN Administration Moderate Pain (4-6) - Exam NAD, awake alert Eye: PERRL, anicteric sclera ENT: no oropharyngeal lesions, dry oral mucosa Neck: supple, no JVD Heart: RRR, no murmur Respiratory: no rales, rhonchi Gastrointestinal: soft, non-tender, normal bowel sounds Extremities: no cyanosis, no clubbing Neurological: CN's grossly intact, no focal deficits Psychiatric: normal affect, A&O x 3 Hosp A/P (1) Septic arthritis of knee, left Code(s): M00.9 - PYOGENIC ARTHRITIS, UNSPECIFIED Status: Acute Qualifiers: Septic arthritis organism: streptococcal Qualified Code(s): M00.262 - Other streptococcal arthritis, left knee (2) Sepsis Code(s): A41.9 - SEPSIS, UNSPECIFIED ORGANISM Status: Acute Qualifiers: Sepsis type: Streptococcus, other Qualified Code(s): A40.8 - Other streptococcal sepsis (3) Cellulitis of left leg Code(s): L03.116 - CELLULITIS OF LEFT LOWER LIMB Status: Acute (4) BPH (benign prostatic hyperplasia) Code(s): N40.0 - BENIGN PROSTATIC HYPERPLASIA WITHOUT LOWER URINRY TRACT SYMP Status: Chronic Qualifiers: Lower urinary tract symptom presence: symptoms absent Qualified Code(s): N40.0 - Benign prostatic hyperplasia without lower urinary tract symptoms (5) Dyslipidemia Code(s): E78.5 - HYPERLIPIDEMIA, UNSPECIFIED Status: Chronic - Plan has diuresed well with lasix, add steroids due to dry hacking cough with rhonchi b/l x 5 doses and stop on ceftiaxone is participating with PT will need outpt antibiotic set up/placement if family wishes on fentanyl and narco prn is off sitter and doing well.
[2019-04-09] MEDS: Benzonatate 100 MG CAP PO SCH ×2 (15:25→21:15)
[2019-04-09] MEDS: methylPREDNISolone Sod Succ 40 MG VIAL IVP SCH ×2 (15:27→21:15)
[2019-04-09] MEDS ORDERED: Furosemide 40 MG/4 ML VIAL ONE (15:36)
--- NOTE | 2019-04-09 16:26 | PRG ---
DATE OF SERVICE: 04/08/2019 SUBJECTIVE: The patient has developed delirium and is sleeping at the moment. He does not appear in distress. He has no diarrhea according to the nursing staff. OBJECTIVE: VITAL SIGNS: The temperature has been normal, blood pressure 150/78, pulse 77, O2 saturation 95. LUNGS: Symmetric air entry. HEART: S1 and S2, regular rate. ABDOMEN: Soft. EXTREMITIES: The left knee dressing is not removed. LABORATORY DATA: White cell count is at 15.9, hemoglobin 11.4, platelets 304, and 82% neutrophils. Creatinine is 0.68, sodium is at 124. Microbiology as previously reviewed. Chest x-ray with mild perihilar edema. 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 Currently on Rocephin, to be continued as discussed with Case Management until May 20, weekly labs, after the 42 days, then transition to oral Keflex and rifampin for 3 months and then just Keflex suppressive therapy low those indefinitely. The management of delirium as usual, usually multifactorial. Hopefully, he will recover from the delirium quickly. Job ID: [id number]
[2019-04-09] MEDS: cefTRIAXone\\ROCEPHIN 2 GM in Sodium Chloride 0.9% 100 ML IVPB SCH (18:08)
[2019-04-09] MEDS: diphenhydrAMINE 50 MG CAP PO SCH (21:15)
[2019-04-10] MEDS: methylPREDNISolone Sod Succ 40 MG VIAL IVP SCH ×3 (05:57→20:58)
[2019-04-10] MEDS: Furosemide 20 MG/2 ML VIAL SLOW IVP SCH ×2 (05:57→14:35)
[2019-04-10] MEDS: Multivit, Therapeutic 1 TAB PO SCH (07:51)
[2019-04-10] MEDS: Famotidine 20 MG TAB PO SCH ×2 (07:51→20:57)
[2019-04-10] MEDS: Enoxaparin Sodium 40 MG/0.4 ML SYRINGE SC SCH (07:52)
[2019-04-10] MEDS: Benzonatate 100 MG CAP PO SCH ×3 (07:52→20:57)
[2019-04-10] MEDS: Fish Oil 1,000 MG CAP PO SCH (07:52)
[2019-04-10 08:44] LABS: Anion Gap 14 mmol/L (10-20); BUN (Urea Nitrogen) 16 mg/dL (8.4-25.7); Calc. Creatinine Clearance 104 mL/min (70-130); Calcium 8.6 mg/dL (7.8-10.44); Carbon Dioxide 22 mmol/L (23-31); Chloride 96 mmol/L (98-107); Estimated GFR-MDRD Greater than 90; Glucose 157 mg/dL (83-110); Sodium 128 mmol/L (136-145)
[2019-04-10 08:48] LABS: #Lymphocytes 1.5 thou/uL (1.20-3.40); #Monocytes 0.4 thou/uL (0.11-0.59); #Neutrophils 15.6 thou/uL (1.40-6.50); %Basophils 0.2 % (0.0-1.0); %Eosinophils 0.1 % (0.0-10.0); %Lymphocytes 8.4 % (21.0-51.0); %Monocytes 2.4 % (0.0-10.0); %Neutrophils 88.9 % (42.0-75.0); Hemoglobin 12.7 g/dL (14.0-18.0); Mean Corpuscular HGB CONC 33.6 g/dL (32.0-36.0); Mean Corpuscular Hemoglobin 31.9 pg (27.0-31.0); Mean Corpuscular Volume 94.9 fL (78.0-98.0); Platelet Count 389 thou/uL (130-400); RBC Distribution Width 13.2 % (11.5-14.5); Red Blood Cell (RBC) Count 3.98 mill/uL (4.70-6.10); White Blood Cell (WBC) Count 17.5 thou/uL (4.8-10.8)
[2019-04-10] MEDS ORDERED: ISOVUE-370 76%-LOCM 1 ML ONE (12:01)
--- NOTE | 2019-04-10 12:23 | PDOC.HOSPP ---
- Subjective Subjective: still has dry cough, no sob pain in leg is better - Objective Vital Signs & Weight: Vital Signs (12 hours) Temp Pulse Resp BP Pulse Ox 04/10/19 11:31 97.7 F 72 16 146/74 H 98 04/10/19 11:28 69 16 04/10/19 08:00 96 04/10/19 07:42 97.6 F 67 18 150/77 H 96 04/10/19 07:33 67 18 04/10/19 04:19 97.6 F 74 18 136/77 98 04/10/19 03:55 94 L Weight Weight 197 lb 15.954 oz I&O: 04/09/19 04/10/19 04/11/19 06:59 06:59 06:59 Intake Total 420 Balance 420 Result Diagrams: 04/10/19 08:01 04/10/19 08:01 ROS - Review of Systems All systems: All other ROS were reviewed and found negative. - Medication Medications: Active Medications Generic Name Dose Route Start Last Admin Trade Name Freq PRN Reason Stop Dose Admin Acetaminophen 650 mg 04/04/19 13:52 04/07/19 04:26 Tylenol PO 650 mg Q4H PRN Administration Headache/Fever/Mild Pain (1-3) Albuterol/Ipratropium 3 ml 04/08/19 06:30 04/10/19 11:28 Duoneb NEB 3 ml [id number] ANCELMO Administration Benzonatate 100 mg 04/09/19 15:00 04/10/19 07:52 Tessalon PO 100 mg TID ANCELMO Administration Diphenhydramine HCl 50 mg 04/08/19 21:00 04/09/19 21:15 Benadryl PO 50 mg HS ANCELMO Administration Enoxaparin Sodium 40 mg 04/05/19 09:00 04/10/19 07:52 Lovenox SC 40 mg 0900 ANCELMO Administration Famotidine 20 mg 04/04/19 21:00 04/10/19 07:51 Pepcid PO 20 mg BID ANCELMO Administration Fish Oil 1,000 mg 04/05/19 09:00 04/10/19 07:52 Fish Oil PO 1,000 mg DAILY ANCELMO Administration Furosemide 20 mg 04/07/19 14:00 04/10/19 05:57 Lasix SLOW IVP 20 mg 0600,1400 ANCELMO Administration Guaifenesin/Dextromethorphan 15 ml 04/04/19 13:52 04/09/19 09:41 Robitussin Dm PO 15 ml Q4H PRN Administration Cough Ceftriaxone Sodium 2 gm/ 100 mls @ 200 mls/hr 04/05/19 18:00 04/09/19 18:08 Sodium Chloride IVPB 100 mls Q24HR ANCELMO Administration Methylprednisolone Sodium Succinate 20 mg 04/09/19 14:00 04/10/19 05:57 Solu-Medrol IVP 04/10/19 22:01 20 mg Q8HR ANCELMO Administration Multivitamins 1 tab 04/05/19 09:00 04/10/19 07:51 Theragran PO 1 tab DAILY ANCELMO Administration Sodium Chloride 10 ml 04/06/19 21:00 04/10/19 07:58 Flush - Normal Saline IVF 10 ml Q12HR ANCELMO Administration Sodium Chloride 10 ml 04/06/19 18:40 04/10/19 05:57 Flush - Normal Saline IVF 10 ml PRN PRN Administration Saline Flush Tramadol HCl 100 mg 04/05/19 13:06 04/07/19 04:27 Ultram PO 100 mg Q6H PRN Administration Moderate Pain (4-6) - Exam NAD, awake alert Eye: PERRL, anicteric sclera ENT: normocephalic atraumatic, moist mucosa Neck: supple, no JVD Heart: RRR, no murmur Respiratory: CTAB, no ronchi Gastrointestinal: soft, non-tender, normal bowel sounds Extremities: no cyanosis, no edema (erythema is receding, no edema of left leg) Neurological: CN's grossly intact, no focal deficits Musculoskeletal: normal tone, normal strength Hosp A/P (1) Septic arthritis of knee, left Code(s): M00.9 - PYOGENIC ARTHRITIS, UNSPECIFIED Status: Acute Qualifiers: Septic arthritis organism: streptococcal Qualified Code(s): M00.262 - Other streptococcal arthritis, left knee (2) Sepsis Code(s): A41.9 - SEPSIS, UNSPECIFIED ORGANISM Status: Acute Qualifiers: Sepsis type: Streptococcus, other Qualified Code(s): A40.8 - Other streptococcal sepsis (3) Cellulitis of left leg Code(s): L03.116 - CELLULITIS OF LEFT LOWER LIMB Status: Acute (4) BPH (benign prostatic hyperplasia) Code(s): N40.0 - BENIGN PROSTATIC HYPERPLASIA WITHOUT LOWER URINRY TRACT SYMP Status: Chronic Qualifiers: Lower urinary tract symptom presence: symptoms absent Qualified Code(s): N40.0 - Benign prostatic hyperplasia without lower urinary tract symptoms (5) Dyslipidemia Code(s): E78.5 - HYPERLIPIDEMIA, UNSPECIFIED Status: Chronic - Plan hemostable cognitively better, with no aggression or combative behavious, is very calm and composed now is on ceftriaxone, nebs, steroids for cough, fentanyl prn awaiting placement CT angio showed no evidence of PE or infiltrate
--- NOTE | 2019-04-10 12:38 | CT ---
CT PULMONARY ANGIOGRAM WITH IV CONTRAST AND 3D POSTPROCESSING: Date: 04/10/19 HISTORY: Recent left knee surgery, cough, concern for PE. FINDINGS: There is good contrast opacification of the pulmonary arterial vasculature without filling defects to suggest pulmonary embolism. The thoracic aorta is well opacified without aneurysm or dissection. Vas cular calcifications are present. There are tiny bilateral pleural effusions. Adjacent atelectatic ch anges are present. No pneumothoraces or lobar consolidation seen. No pericardial effusions noted. The re are degenerative changes in the spine. A small hiatal hernia is present. IMPRESSION: No CT evidence of pulmonary embolism. POS: ISABELA
--- NOTE | 2019-04-10 17:08 | PRG ---
DATE OF SERVICE: 04/10/2019 SUBJECTIVE: Delirium has resolved and he is oriented now. No pain in the left knee. No respiratory symptoms, except for a little bit of cough, but not as much as before. No chest pain. No abdominal pain. No diarrhea. No genitourinary symptoms. OBJECTIVE: VITAL SIGNS: He has been afebrile. BP 130/70, pulse 75, respirations 18. HEENT: Awake, alert, and oriented. Follows commands. Ocular movements conjugate. LUNGS: Symmetric and clear breath sounds. HEART: S1 and S2, regular rate. ABDOMEN: Soft. Not distended. No ascites. No edema. LABORATORY DATA: White cell count is little bit up to 17.5, but the bands are down, so I think this represents the shift towards a more mature type of neutrophil and we should see going forward decrease in the total number of white cells. The chemistry with a normal creatinine. Sodium is a little bit up to 128 from previous microbiology with group G Streptococcus as noted before. IMAGING STUDIES: CT chest angiogram, no evidence of pulmonary embolism. The pulmonary parenchyma did not show any findings, except for tiny bilateral pleural effusions. 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 Again, the WBC count is going up, but the differential was improving, so I think this is just a natural shift, and going forward, should see or expect decrease in total white cell count. The patient should be ready for discharge planning. Transfer to [facility]. IV Rocephin until May 20 with weekly labs. Transition to oral Keflex and rifampin for 3 months and then just Keflex suppressive therapy indefinitely. Job ID: [id number]
[2019-04-10] MEDS: cefTRIAXone\\ROCEPHIN 2 GM in Sodium Chloride 0.9% 100 ML IVPB SCH (18:10)
[2019-04-10] MEDS: diphenhydrAMINE 50 MG CAP PO SCH (20:57)
[2019-04-10] MEDS ORDERED: Conivaptan 20 MG in Premix Bag 1 BAG IVPB SCH (22:30)
[2019-04-11 06:19] LABS: Anion Gap 13 mmol/L (10-20); BUN (Urea Nitrogen) 22 mg/dL (8.4-25.7); Calc. Creatinine Clearance 100 mL/min (70-130); Calcium 8.6 mg/dL (7.8-10.44); Carbon Dioxide 24 mmol/L (23-31); Chloride 102 mmol/L (98-107); Estimated GFR-MDRD Greater than 90; Glucose 145 mg/dL (83-110); Potassium 4.6 mmol/L (3.5-5.1); Sodium 134 mmol/L (136-145)
[2019-04-11] MEDS: Enoxaparin Sodium 40 MG/0.4 ML SYRINGE SC SCH (09:25)
[2019-04-11] MEDS: Fish Oil 1,000 MG CAP PO SCH (09:25)
[2019-04-11] MEDS: Benzonatate 100 MG CAP PO SCH ×2 (09:25→14:50)
[2019-04-11] MEDS: Famotidine 20 MG TAB PO SCH (09:25)
[2019-04-11] MEDS: Multivit, Therapeutic 1 TAB PO SCH (09:25)
[2019-04-11] MEDS: cefTRIAXone\\ROCEPHIN 2 GM in Sodium Chloride 0.9% 100 ML IVPB SCH (14:43)
[2019-04-11 14:56] VITALS: BP 143/76; TEMP 97.7
--- NOTE | 2019-04-11 21:18 | DIS ---
DATE OF ADMISSION: 04/04/2019 DATE OF DISCHARGE: 04/11/2019 DISCHARGE DISPOSITION: Home. PRIMARY DISCHARGE DIAGNOSES: Left knee septic arthritis with cellulitis; sepsis secondary to above; benign prostatic hyperplasia; dyslipidemia; brief onset of delirium, which got resolved. PROCEDURES DONE DURING HOSPITALIZATION: CT left lower extremity with contrast done. Moderate stranding within the subcutaneous tissue of the calf and anterior lower thigh. No soft tissue gas, abscess or fluid collections were apparent. Fluid distention of the suprapatellar bursa with thickening of the synovium. Enlarged lymph nodes of the left iliac and inguinal chain are likely reactive. Plain x- ray of left tibia and fibula, two views done showed no acute osseous abnormality. Soft tissue edema of the leg was seen. Echo with 2D Doppler showed EF of 55% to 60% . No vegetations were noted on cardiac valves. The patient had a single stage revision arthroplasty of left knee done by Dr. Trinidad for pyogenic periprosthetic arthritis, left knee. This was done on 04/05/2019, had a PICC line placed by Interventional Radiology on 04/06/2019. CT angio chest done shows no evidence of PE. There was no infiltrate noted. The knee aspirate has grown Streptococcus group G. Blood cultures x2, no growth. Urine culture, no growth. He had a white count of 22.6 with discharge numbers of 17, H and H 12 and 37, platelet count 389, with 88% neutrophils on the day of discharge. Initial sodium of 128 with discharge number of 134, discharge BUN and creatinine are 22 and 0.7. Lactic acid 2.3. CRP 31. Synovial fluid was cloudy, turbid, with 77,130 wbc's. No crystals were seen. INPATIENT CONSULTATION: Dr. Trinidad for Orthopedic surgery and Dr. Mckinnon for Infectious Disease. DISCHARGE MEDICATIONS: 1. Ceftriaxone 2 g IV daily until May 20 with weekly CBC, CMP, CRP, and sedimentation rate, the results of which needs to be faxed to Dr. Mckinnon. After May 20, the patient needs to transition to oral Keflex and rifampin for 3 months and then Keflex alone as suppressive therapy indefinitely. 2. Multivitamin one tablet once daily. 3. Fish oil 1000 mg capsule daily. 4. Albuterol inhaler q.6 hourly p.r.n. 5. Motrin 400 mg p.o. three times daily p.r.n. ALLERGIES: NO KNOWN DRUG ALLERGIES. DISCHARGE PLAN: The patient is to follow up with Dr. Mckinnon in 3 weeks[address] Trinidad in 2 weeks, and primary care physician in 1 week. BRIEF COURSE DURING HOSPITALIZATION: The patient initially got admitted on the with complaints of left lower extremity swelling and redness. He has known history of left total knee arthroplasty. He was septic with a white count of 22, temperature of 100, and bandemia. He was evaluated by Dr. Trinidad and has had bedside arthrocentesis done, which revealed purulent joint fluid. He was taken to OR and has had single stage revision arthroplasty done. This was done on 04/05/2019. Cultures have grown Streptococcus group G. The patient was evaluated by Dr. Mckinnon as well. He was on IV antibiotics, broad spectrum initially and has been transitioned to ceftriaxone, which he needs to continue until May 20. The patient had a brief period of delirium, which got completely resolved. Mr. Blanco also had hyponatremia, likely chronic, which got resolved with one dose of conivaptan 20 mg. Prior to discharge, he is ambulating and participating with physical therapy. He is tolerating oral solid diet. He has a PICC line and needs to continue ceftriaxone as prescribed. Case Management consultation was requested for discharge planning. The patient and his friend have opted for ceftriaxone infusion at [facility] here and [facility] therapy. A total of 35 minutes was spent on discharge plan. Please see a [id number] documentation for the day of discharge on [employer]. Job ID: [id number] MTDD
--- NOTE | 2019-04-12 12:01 | PDOC.HOSPP ---
- Subjective Subjective: awake and oriented, no pain feels good he prefers to go home and come for infusion therapy and go to sports medicine clinic for PT no sob, cough is better - Objective Vital Signs & Weight: Weight Weight 197 lb 15.954 oz I&O: 04/11/19 04/12/19 04/13/19 06:59 06:59 06:59 Intake Total 100 Output Total 2325 Balance -2225 Result Diagrams: 04/10/19 08:01 04/11/19 05:50 ROS - Review of Systems All systems: All other ROS were reviewed and found negative. - Exam NAD (left knee erythema is slowly receding, edema has resolved), awake alert Eye: PERRL, anicteric sclera ENT: no oropharyngeal lesions, moist mucosa Neck: supple, no JVD Heart: RRR, no murmur Respiratory: no wheezes, no rales Gastrointestinal: soft, non-tender Extremities: no cyanosis, no clubbing Neurological: CN's grossly intact, no focal deficits Psychiatric: normal affect, A&O x 3 Hosp A/P (1) Septic arthritis of knee, left Code(s): M00.9 - PYOGENIC ARTHRITIS, UNSPECIFIED Status: Acute Qualifiers: Septic arthritis organism: streptococcal Qualified Code(s): M00.262 - Other streptococcal arthritis, left knee (2) Sepsis Code(s): A41.9 - SEPSIS, UNSPECIFIED ORGANISM Status: Acute Qualifiers: Sepsis type: Streptococcus, other Qualified Code(s): A40.8 - Other streptococcal sepsis (3) Cellulitis of left leg Code(s): L03.116 - CELLULITIS OF LEFT LOWER LIMB Status: Acute (4) BPH (benign prostatic hyperplasia) Code(s): N40.0 - BENIGN PROSTATIC HYPERPLASIA WITHOUT LOWER URINRY TRACT SYMP Status: Chronic Qualifiers: Lower urinary tract symptom presence: symptoms absent Qualified Code(s): N40.0 - Benign prostatic hyperplasia without lower urinary tract symptoms (5) Dyslipidemia Code(s): E78.5 - HYPERLIPIDEMIA, UNSPECIFIED Status: Chronic - Plan hemostable dc pt home Please note this progress note is for 04/11/2019
== END 2019-04-11 18:02 | disposition home health service (06) | DRG 466 ==
LOC: ERS 07:29 → ONC 09:06 → SURG B 04-05 17:14
PROVIDERS: ADMIT Internal Medicine; ATTEND Internal Medicine
PROC: 02HV33Z Insertion of Infusion Device into Superior Vena Cava, Percutaneous Approach (ICD-10-PCS; 2019-04-04)
PROC: B548ZZA Ultrasonography of Superior Vena Cava, Guidance (ICD-10-PCS; 2019-04-04)
PROC: 0SPD0JZ Removal of Synthetic Substitute from Left Knee Joint, Open Approach (ICD-10-PCS; principal; 2019-04-05)
PROC: 0SRD0J9 Replacement of Left Knee Joint with Synthetic Substitute, Cemented, Open Approach (ICD-10-PCS; 2019-04-05)
DX: T84.54XA Infection and inflammatory reaction due to internal left knee prosthesis, initial encounter (principal); A40.8 Other streptococcal sepsis; L03.116 Cellulitis of left lower limb; M00.262 Other streptococcal arthritis, left knee; E78.5 Hyperlipidemia, unspecified; N40.0 Benign prostatic hyperplasia without lower urinary tract symptoms; Y79.2 Prosthetic and other implants, materials and accessory orthopedic devices associated with adverse incidents; Z96.653 Presence of artificial knee joint, bilateral; R41.0 Disorientation, unspecified; Z79.899 Other long term (current) drug therapy
CPT/HCPCS: 36415; 36416; 36569; 71045; 71275; 80048; 80053; 80202; 81003; 81015; 83605; 83735; 83935; 84300; 85025; 85060; 85652; 86140; 86141; 87040; 87070; 87077; 87086; 87205; 89051; 93005; 93306; 94640; 96361; 96365; 96367; C1713; C1751; C1776; C9488; J0696; J1644; J1650; J1940; J2250; J2543; J2920; J3010; J3260; J3370; J3490; J7050; J7611; J7620; Q0163; Q9966

== ENCOUNTER 2024-10-01 13:34 | Inpatient (IN) | payer MEDICARE ==
[2024-10-01 14:10] LABS: #Basophils 0.06 10x3/uL (0.0-0.2); %Basophils 0.9 % (0.0-1.0); %Lymphocytes 30.9 % (21.0-51.0); %Monocytes 7.9 % (0.0-10.0); %Neutrophils 50.2 % (42.0-75.0); Hematocrit 42.5 % (42.0-52.0); Hemoglobin 14.9 g/dL (14.0-18.0); Mean Corpuscular HGB CONC 35.1 g/dL (32.0-36.0); Mean Corpuscular Hemoglobin 31.2 pg (27.0-31.0); Mean Corpuscular Volume 88.9 fL (78.0-98.0); Mean Platelet Volume 8.9 fL (7.4-10.4); Platelet Count 255 10x3/uL (130-400); Red Blood Cell (RBC) Count 4.78 mill/uL (4.70-6.10)
[2024-10-01 14:23] LABS: ALT (SGPT) 26 U/L (8-55); AST (SGOT) 30 U/L (5-34); Albumin 3.7 g/dL (3.4-4.8); Alkaline Phosphatase 47 U/L (40-110); Anion Gap 12 mmol/L (10-20); BUN (Urea Nitrogen) 14 mg/dL (8.4-25.7); Bilirubin, Total 0.6 mg/dL (0.2-1.2); Calc. Creatinine Clearance 0 mL/min (70-130); Calcium 9.2 mg/dL (7.8-10.44); Carbon Dioxide 24 mmol/L (23-31); Chloride 105 mmol/L (98-107); Estimated GFR 51; Globulin 3.7 g/dL (2.4-3.5); Glucose 104 mg/dL (83-110); Magnesium 2.1 mg/dL (1.6-2.6); Potassium 4.3 mmol/L (3.5-5.1); Protein, Total 7.4 g/dL (5.8-8.1); Sodium 137 mmol/L (136-145)
[2024-10-01 14:28] LABS: Troponin I Less than 0.010 ng/mL (< 0.028)
[2024-10-01] MEDS ORDERED: Atropine Sulfate 1 mg/10 ml Syringe ONE (14:58)
[2024-10-01] MEDS ORDERED: Acetaminophen 325 MG TAB PO PRN (15:19)
[2024-10-01 17:55] VITALS: BMI 72.9
[2024-10-01] MEDS ORDERED: Polyethylene Glycol 3350 17 GM Packet PO PRN (19:16)
[2024-10-01] MEDS: Senokot S 8.6-50 MG TAB PO SCH (20:04)
[2024-10-02 04:22] LABS: #Basophils 0.09 10x3/uL (0.0-0.2); %Basophils 1.2 % (0.0-1.0); %Eosinophils 12.3 % (0.0-10.0); %Lymphocytes 31.7 % (21.0-51.0); %Monocytes 8.3 % (0.0-10.0); %Neutrophils 46.2 % (42.0-75.0); Hematocrit 40.5 % (42.0-52.0); Hemoglobin 14.1 g/dL (14.0-18.0); Mean Corpuscular HGB CONC 34.8 g/dL (32.0-36.0); Mean Corpuscular Hemoglobin 31.5 pg (27.0-31.0); Mean Corpuscular Volume 90.6 fL (78.0-98.0); Mean Platelet Volume 8.9 fL (7.4-10.4); Platelet Count 251 10x3/uL (130-400); Red Blood Cell (RBC) Count 4.47 mill/uL (4.70-6.10)
[2024-10-02 04:51] LABS: ALT (SGPT) 23 U/L (8-55); AST (SGOT) 26 U/L (5-34); Albumin 3.4 g/dL (3.4-4.8); Alkaline Phosphatase 44 U/L (40-110); Anion Gap 14 mmol/L (10-20); BUN (Urea Nitrogen) 14 mg/dL (8.4-25.7); Bilirubin, Total 0.5 mg/dL (0.2-1.2); Calc. Creatinine Clearance 142 mL/min (70-130); Calcium 8.8 mg/dL (7.8-10.44); Carbon Dioxide 20 mmol/L (23-31); Chloride 107 mmol/L (98-107); Estimated GFR 67; Globulin 3.2 g/dL (2.4-3.5); Glucose 97 mg/dL (83-110); Potassium 3.9 mmol/L (3.5-5.1); Protein, Total 6.6 g/dL (5.8-8.1); Sodium 137 mmol/L (136-145)
[2024-10-02] MEDS: Enoxaparin 40 MG (0.4 mL) SYRINGE SC SCH (09:05)
[2024-10-03] MEDS ORDERED: Vancomycin HCl 500 MG VIAL ONE (06:23)
[2024-10-03] MEDS ORDERED: Gentamicin 80 MG (100 mL) BAG ONE (06:23)
[2024-10-03] MEDS ORDERED: CEFAZOLIN 2 GM VIAL ONE (06:23)
[2024-10-03] MEDS ORDERED: Gentamicin 80 MG/2 ML VIAL ONE (06:27)
[2024-10-03] MEDS ORDERED: CEFAZOLIN 1 GM VIAL ONE (06:28)
[2024-10-03] MEDS ORDERED: Midazolam HCl 2 mg/2 ml Vial ONE (07:21)
[2024-10-03 09:40] VITALS: TEMP 97.5
[2024-10-03] MEDS: Doxycycline 100 MG CAP PO SCH (09:56)
[2024-10-03] MEDS ORDERED: Lisinopril 10 MG TAB PO SCH (11:30)
[2024-10-03 13:32] VITALS: BP 126/66
[2024-10-04] MEDS ORDERED: Lisinopril 5 MG TAB PO SCH (09:00)
== END 2024-10-03 17:10 | disposition home or self-care (01) | DRG 243 ==
LOC: ERS 13:34 → ERHOLD 14:56 → IMCU/EMU 17:35
PROVIDERS: ADMIT Student in an Organized Health Care Education/Training Program; ATTEND Internal Medicine
PROC: 0JH606Z Insertion of Pacemaker, Dual Chamber into Chest Subcutaneous Tissue and Fascia, Open Approach (ICD-10-PCS; principal; 2024-10-03)
PROC: 02H63JZ Insertion of Pacemaker Lead into Right Atrium, Percutaneous Approach (ICD-10-PCS; 2024-10-03)
PROC: 02HK3JZ Insertion of Pacemaker Lead into Right Ventricle, Percutaneous Approach (ICD-10-PCS; 2024-10-03)
DX: R00.1 Bradycardia, unspecified (principal); N17.9 Acute kidney failure, unspecified; E03.9 Hypothyroidism, unspecified; K59.00 Constipation, unspecified; I49.5 Sick sinus syndrome; I44.2 Atrioventricular block, complete; N18.30 Chronic kidney disease, stage 3 unspecified; R55 Syncope and collapse; Z96.653 Presence of artificial knee joint, bilateral
CPT/HCPCS: 33208; 36415; 70470; 71045; 80053; 82565; 83735; 83880; 84439; 84443; 84484; 85025; 93005; 93306; 93798; 96361; 96374; 99152; 99153; C1785; C1898; J0461; J0690; J1580; J1650; J2250; J3370; Q9967

== ENCOUNTER 2025-04-19 16:49 | Inpatient (IN) | payer MEDICARE ==
[2025-04-19] MEDS ORDERED: Calcium Carbonate 500 MG ChewTAB PO PRN (21:20)
[2025-04-19] MEDS ORDERED: Ondansetron PF 4 MG/2 ML Vial IVP PRN (21:20)
[2025-04-19] MEDS: Acetaminophen 325 MG TAB PO PRN (22:27)
[2025-04-20 02:42] VITALS: BMI 30.2
[2025-04-20 05:21] LABS: #Basophils 0.05 10x3/uL (0.0-0.2); #Eosinophils 0.51 10x3/uL (0.0-0.7); #Monocytes 1.19 10x3/uL (0.11-0.59); #Neutrophils 3.53 10x3/uL (1.40-6.50); %Basophils 0.6 % (0.0-1.0); %Eosinophils 6.5 % (0.0-10.0); %Lymphocytes 31.5 % (21.0-51.0); %Monocytes 15.3 % (0.0-10.0); %Neutrophils 45.3 % (42.0-75.0); Hematocrit 36.2 % (42.0-52.0); Hemoglobin 11.8 g/dL (14.0-18.0); Mean Corpuscular Hemoglobin 27.2 pg (27.0-31.0); Mean Corpuscular Volume 83.4 fL (78.0-98.0); Platelet Count 213 10x3/uL (130-400); Red Blood Cell (RBC) Count 4.34 mill/uL (4.70-6.10); White Blood Cell (WBC) Count 7.80 10x3/uL (4.8-10.8)
[2025-04-20 05:29] LABS: ALT (SGPT) 43 U/L (Less than 45); AST (SGOT) 63 U/L (11-34); Albumin 2.2 g/dL (3.1-4.5); Alkaline Phosphatase 146 U/L (40-110); Anion Gap 14 mmol/L (10-20); BUN (Urea Nitrogen) 13 mg/dL (8.4-25.7); Bilirubin, Total 0.5 mg/dL (0.3-1.2); Calc. Creatinine Clearance 98 mL/min (70-130); Calcium 8.7 mg/dL (7.8-10.44); Carbon Dioxide 21 mmol/L (23-31); Chloride 101 mmol/L (98-107); Globulin 4.5 g/dL (2.4-3.5); Glucose 92 mg/dL (83-110); Potassium 3.7 mmol/L (3.5-5.1); Sodium 132 mmol/L (136-145)
[2025-04-20] MEDS: PNEUMOC 20-VAL CONJ-DIP CRM/PF 0.5 ML SYRINGE IM ONE (17:15)
[2025-04-21] MEDS: Lisinopril 5 MG TAB PO SCH (09:58)
[2025-04-21 11:41] VITALS: BMI 30.2
[2025-04-22 04:36] LABS: #Basophils 0.07 10x3/uL (0.0-0.2); #Eosinophils 0.49 10x3/uL (0.0-0.7); #Monocytes 1.13 10x3/uL (0.11-0.59); #Neutrophils 4.84 10x3/uL (1.40-6.50); %Basophils 0.8 % (0.0-1.0); %Eosinophils 5.8 % (0.0-10.0); %Lymphocytes 21.9 % (21.0-51.0); %Monocytes 13.3 % (0.0-10.0); %Neutrophils 57.1 % (42.0-75.0); Hematocrit 35.4 % (42.0-52.0); Hemoglobin 11.5 g/dL (14.0-18.0); Mean Corpuscular Hemoglobin 27.4 pg (27.0-31.0); Mean Corpuscular Volume 84.3 fL (78.0-98.0); Platelet Count 279 10x3/uL (130-400); Red Blood Cell (RBC) Count 4.20 mill/uL (4.70-6.10); White Blood Cell (WBC) Count 8.48 10x3/uL (4.8-10.8)
[2025-04-22 04:59] LABS: Anion Gap 14 mmol/L (10-20); BUN (Urea Nitrogen) 13 mg/dL (8.4-25.7); Calc. Creatinine Clearance 115 mL/min (70-130); Calcium 9.0 mg/dL (7.8-10.44); Carbon Dioxide 22 mmol/L (23-31); Chloride 100 mmol/L (98-107); Glucose 101 mg/dL (83-110); Magnesium 2.0 mg/dL (1.6-2.6); Potassium 3.6 mmol/L (3.5-5.1); Sodium 132 mmol/L (136-145)
[2025-04-22] MEDS: Lisinopril 5 MG TAB PO SCH (12:33)
[2025-04-24 06:37] LABS: #Basophils 0.09 10x3/uL (0.0-0.2); #Eosinophils 0.74 10x3/uL (0.0-0.7); #Monocytes 0.97 10x3/uL (0.11-0.59); #Neutrophils 4.69 10x3/uL (1.40-6.50); %Basophils 1.1 % (0.0-1.0); %Eosinophils 8.9 % (0.0-10.0); %Lymphocytes 20.9 % (21.0-51.0); %Monocytes 11.7 % (0.0-10.0); %Neutrophils 56.6 % (42.0-75.0); Hematocrit 32.6 % (42.0-52.0); Hemoglobin 10.5 g/dL (14.0-18.0); Mean Corpuscular Hemoglobin 27.1 pg (27.0-31.0); Mean Corpuscular Volume 84.0 fL (78.0-98.0); Platelet Count 353 10x3/uL (130-400); Red Blood Cell (RBC) Count 3.88 mill/uL (4.70-6.10); White Blood Cell (WBC) Count 8.29 10x3/uL (4.8-10.8)
[2025-04-24 06:53] LABS: Anion Gap 15 mmol/L (10-20); BUN (Urea Nitrogen) 18 mg/dL (8.4-25.7); Calc. Creatinine Clearance 95 mL/min (70-130); Calcium 9.2 mg/dL (7.8-10.44); Carbon Dioxide 23 mmol/L (23-31); Chloride 106 mmol/L (98-107); Glucose 90 mg/dL (83-110); Potassium 3.9 mmol/L (3.5-5.1); Sodium 140 mmol/L (136-145)
[2025-04-25 04:48] LABS: #Basophils 0.10 10x3/uL (0.0-0.2); #Eosinophils 0.68 10x3/uL (0.0-0.7); #Monocytes 0.95 10x3/uL (0.11-0.59); #Neutrophils 4.12 10x3/uL (1.40-6.50); %Basophils 1.3 % (0.0-1.0); %Eosinophils 8.9 % (0.0-10.0); %Lymphocytes 23.1 % (21.0-51.0); %Monocytes 12.4 % (0.0-10.0); %Neutrophils 53.6 % (42.0-75.0); Hematocrit 33.9 % (42.0-52.0); Hemoglobin 10.9 g/dL (14.0-18.0); Mean Corpuscular Hemoglobin 26.9 pg (27.0-31.0); Mean Corpuscular Volume 83.7 fL (78.0-98.0); Platelet Count 356 10x3/uL (130-400); Red Blood Cell (RBC) Count 4.05 mill/uL (4.70-6.10); White Blood Cell (WBC) Count 7.67 10x3/uL (4.8-10.8)
[2025-04-25 05:19] LABS: Anion Gap 15 mmol/L (10-20); BUN (Urea Nitrogen) 15 mg/dL (8.4-25.7); Calc. Creatinine Clearance 95 mL/min (70-130); Calcium 8.9 mg/dL (7.8-10.44); Carbon Dioxide 20 mmol/L (23-31); Chloride 103 mmol/L (98-107); Glucose 88 mg/dL (83-110); Potassium 4.2 mmol/L (3.5-5.1); Sodium 134 mmol/L (136-145)
[2025-04-26 05:58] LABS: #Basophils 0.10 10x3/uL (0.0-0.2); #Eosinophils 0.75 10x3/uL (0.0-0.7); #Monocytes 1.17 10x3/uL (0.11-0.59); #Neutrophils 4.96 10x3/uL (1.40-6.50); %Basophils 1.1 % (0.0-1.0); %Eosinophils 8.0 % (0.0-10.0); %Lymphocytes 24.5 % (21.0-51.0); %Monocytes 12.6 % (0.0-10.0); %Neutrophils 53.2 % (42.0-75.0); Hematocrit 36.8 % (42.0-52.0); Hemoglobin 11.6 g/dL (14.0-18.0); Mean Corpuscular Hemoglobin 27.2 pg (27.0-31.0); Mean Corpuscular Volume 86.2 fL (78.0-98.0); Platelet Count 353 10x3/uL (130-400); Red Blood Cell (RBC) Count 4.27 mill/uL (4.70-6.10); White Blood Cell (WBC) Count 9.32 10x3/uL (4.8-10.8)
[2025-04-26 06:17] LABS: Anion Gap 16 mmol/L (10-20); BUN (Urea Nitrogen) 19 mg/dL (8.4-25.7); Calc. Creatinine Clearance 84 mL/min (70-130); Calcium 9.4 mg/dL (7.8-10.44); Carbon Dioxide 23 mmol/L (23-31); Chloride 102 mmol/L (98-107); Glucose 85 mg/dL (83-110); Potassium 4.2 mmol/L (3.5-5.1); Sodium 137 mmol/L (136-145)
[2025-04-27 05:24] LABS: #Basophils 0.08 10x3/uL (0.0-0.2); #Eosinophils 0.52 10x3/uL (0.0-0.7); #Monocytes 1.14 10x3/uL (0.11-0.59); #Neutrophils 5.22 10x3/uL (1.40-6.50); %Basophils 0.9 % (0.0-1.0); %Eosinophils 6.0 % (0.0-10.0); %Lymphocytes 19.2 % (21.0-51.0); %Monocytes 13.1 % (0.0-10.0); %Neutrophils 60.0 % (42.0-75.0); Hematocrit 35.0 % (42.0-52.0); Hemoglobin 11.3 g/dL (14.0-18.0); Mean Corpuscular Hemoglobin 26.8 pg (27.0-31.0); Mean Corpuscular Volume 83.1 fL (78.0-98.0); Platelet Count 387 10x3/uL (130-400); Red Blood Cell (RBC) Count 4.21 mill/uL (4.70-6.10); White Blood Cell (WBC) Count 8.70 10x3/uL (4.8-10.8)
[2025-04-27 05:52] LABS: Anion Gap 15 mmol/L (10-20); BUN (Urea Nitrogen) 20 mg/dL (8.4-25.7); Calc. Creatinine Clearance 80 mL/min (70-130); Calcium 9.5 mg/dL (7.8-10.44); Carbon Dioxide 21 mmol/L (23-31); Chloride 103 mmol/L (98-107); Glucose 96 mg/dL (83-110); Potassium 4.1 mmol/L (3.5-5.1); Sodium 135 mmol/L (136-145)
[2025-04-28 04:55] LABS: #Basophils 0.13 10x3/uL (0.0-0.2); #Eosinophils 0.53 10x3/uL (0.0-0.7); #Monocytes 1.47 10x3/uL (0.11-0.59); #Neutrophils 5.98 10x3/uL (1.40-6.50); %Basophils 1.3 % (0.0-1.0); %Eosinophils 5.2 % (0.0-10.0); %Lymphocytes 20.2 % (21.0-51.0); %Monocytes 14.3 % (0.0-10.0); %Neutrophils 58.3 % (42.0-75.0); Hematocrit 35.6 % (42.0-52.0); Hemoglobin 11.3 g/dL (14.0-18.0); Mean Corpuscular Hemoglobin 26.8 pg (27.0-31.0); Mean Corpuscular Volume 84.4 fL (78.0-98.0); Platelet Count 371 10x3/uL (130-400); Red Blood Cell (RBC) Count 4.22 mill/uL (4.70-6.10); White Blood Cell (WBC) Count 10.25 10x3/uL (4.8-10.8)
[2025-04-28 05:06] LABS: Anion Gap 21 mmol/L (10-20); BUN (Urea Nitrogen) 20 mg/dL (8.4-25.7); Calc. Creatinine Clearance 78 mL/min (70-130); Calcium 9.5 mg/dL (7.8-10.44); Carbon Dioxide 15 mmol/L (23-31); Chloride 102 mmol/L (98-107); Glucose 92 mg/dL (83-110); Potassium 4.5 mmol/L (3.5-5.1); Sodium 133 mmol/L (136-145)
[2025-04-28 16:26] VITALS: BP 116/69; TEMP 98.3
== END 2025-04-28 15:37 | DRG 841 ==
LOC: MSONC 16:49
PROVIDERS: ADMIT Family Medicine; ATTEND Family Medicine
DX: C81.79 Other Hodgkin lymphoma, extranodal and solid organ sites (principal); G91.2 (Idiopathic) normal pressure hydrocephalus; C81.77 Other Hodgkin lymphoma, spleen; R59.0 Localized enlarged lymph nodes; Z96.653 Presence of artificial knee joint, bilateral; Z98.890 Other specified postprocedural states; Z95.0 Presence of cardiac pacemaker
CPT/HCPCS: 36415; 71045; 80048; 80053; 83735; 84443; 84550; 85025; 93306

== ENCOUNTER 2025-05-02 08:15 | Inpatient (IN) | payer MEDICARE ==
[2025-05-02] MEDS ORDERED: Vancomycin HCl 20 MG, Gentamicin (PEDI) 8 MG, Admixture Fee 1 EACH in Sodium Chloride 0... FS SCH (09:00)
[2025-05-02 10:26] LABS: #Basophils 0.08 10x3/uL (0.0-0.2); #Eosinophils 0.09 10x3/uL (0.0-0.7); #Monocytes 1.82 10x3/uL (0.11-0.59); #Neutrophils 7.23 10x3/uL (1.40-6.50); %Basophils 0.7 % (0.0-1.0); %Eosinophils 0.8 % (0.0-10.0); %Lymphocytes 16.8 % (21.0-51.0); %Monocytes 16.3 % (0.0-10.0); %Neutrophils 64.9 % (42.0-75.0); Hematocrit 36.6 % (42.0-52.0); Hemoglobin 11.9 g/dL (14.0-18.0); Mean Corpuscular Hemoglobin 27.2 pg (27.0-31.0); Mean Corpuscular Volume 83.6 fL (78.0-98.0); Platelet Count 305 10x3/uL (130-400); Red Blood Cell (RBC) Count 4.38 mill/uL (4.70-6.10); White Blood Cell (WBC) Count 11.16 10x3/uL (4.8-10.8)
[2025-05-02 10:40] LABS: INR-International Normal Ratio 1.5; PTT 51.7 sec (22.9-36.1); Prothrombin Time 18.2 sec (12.0-14.7)
[2025-05-02 10:43] LABS: Anion Gap 16 mmol/L (10-20); BUN (Urea Nitrogen) 23 mg/dL (8.4-25.7); Calc. Creatinine Clearance 68 mL/min (70-130); Calcium 10.0 mg/dL (7.8-10.44); Carbon Dioxide 21 mmol/L (23-31); Chloride 102 mmol/L (98-107); Glucose 109 mg/dL (83-110); Potassium 4.1 mmol/L (3.5-5.1); Sodium 135 mmol/L (136-145)
[2025-05-02] MEDS ORDERED: fentaNYL PF 100 MCG/2 ML SYRINGE ONE (11:44)
[2025-05-02] MEDS ORDERED: Lidocaine 1% PF 5 ML VIAL ONE (11:45)
[2025-05-02] MEDS ORDERED: Etomidate 40 MG (20 mL) VIAL ONE (11:46)
[2025-05-02] MEDS ORDERED: Bacitracin Zinc Ointment 30 gm TUBE ONE (11:49)
[2025-05-02] MEDS ORDERED: Lidocaine 1% w/Epinephrine 1:100K 20 ML VIAL ONE (11:49)
[2025-05-02] MEDS ORDERED: Rocuronium Bromide 10 MG/ML (10ML VIAL) ONE (12:10)
[2025-05-02] MEDS ORDERED: Melatonin 3 MG TAB PO PRN (12:48)
[2025-05-02] MEDS ORDERED: Ondansetron PF 4 MG/2 ML Vial IVP PRN (12:48)
[2025-05-02] MEDS ORDERED: Senokot S 8.6-50 MG TAB PO PRN (12:48)
[2025-05-02 15:12] VITALS: BMI 36.1
[2025-05-02] MEDS: Famotidine/PF 20 mg/2ml Vial SLOW IVP SCH (20:20)
[2025-05-03] MEDS: Acetaminophen 325 MG TAB PO PRN (05:38)
[2025-05-03 05:46] LABS: #Basophils 0.05 10x3/uL (0.0-0.2); #Eosinophils 0.06 10x3/uL (0.0-0.7); #Monocytes 1.33 10x3/uL (0.11-0.59); #Neutrophils 5.14 10x3/uL (1.40-6.50); %Basophils 0.7 % (0.0-1.0); %Eosinophils 0.8 % (0.0-10.0); %Lymphocytes 14.2 % (21.0-51.0); %Monocytes 17.3 % (0.0-10.0); %Neutrophils 66.7 % (42.0-75.0); Hematocrit 34.7 % (42.0-52.0); Hemoglobin 11.4 g/dL (14.0-18.0); Mean Corpuscular Hemoglobin 26.8 pg (27.0-31.0); Mean Corpuscular Volume 81.6 fL (78.0-98.0); Platelet Count 274 10x3/uL (130-400); Red Blood Cell (RBC) Count 4.25 mill/uL (4.70-6.10); White Blood Cell (WBC) Count 7.69 10x3/uL (4.8-10.8)
[2025-05-03 05:59] LABS: INR-International Normal Ratio 1.6; PTT 57.5 sec (22.9-36.1); Prothrombin Time 18.9 sec (12.0-14.7)
[2025-05-03 06:02] LABS: ALT (SGPT) 76 U/L (Less than 45); AST (SGOT) 104 U/L (11-34); Albumin 2.5 g/dL (3.1-4.5); Alkaline Phosphatase 180 U/L (40-110); Anion Gap 16 mmol/L (10-20); BUN (Urea Nitrogen) 21 mg/dL (8.4-25.7); Bilirubin, Total 0.9 mg/dL (0.3-1.2); Calc. Creatinine Clearance 72 mL/min (70-130); Calcium 9.4 mg/dL (7.8-10.44); Carbon Dioxide 20 mmol/L (23-31); Chloride 101 mmol/L (98-107); Globulin 4.7 g/dL (2.4-3.5); Glucose 107 mg/dL (83-110); Potassium 4.3 mmol/L (3.5-5.1); Sodium 133 mmol/L (136-145)
[2025-05-03 08:22] LABS: Bacteria/HPF None Seen HPF (None Seen); Glucose, Urine (Dipstick) Normal (Negative); Leukocyte Negative Leu/uL (Negative); Protein, Urine (Dipstick) 30 mg/dL (Neg-Trace); RBC/HPF 0-3 HPF (0-3); Specific Gravity, Urine 1.023 (1.002-1.036); WBC/HPF 0-3 HPF (0-3)
[2025-05-03] MEDS: Multivitamin W/ Minerals 1 TAB PO SCH (09:07)
[2025-05-03 16:34] LABS: Platelet Count 283 10x3/uL (130-400)
[2025-05-03 17:01] VITALS: BMI 36.1
[2025-05-03 17:59] LABS: PT - Undiluted 19.2 sec (12.0-14.7)
[2025-05-03 18:00] LABS: PTT - Undiluted 50.4 sec (22.9-36.1)
[2025-05-03] MEDS: D5 1/2 NS w/10 mEq KCl 1,000 ML/1,000 ML BAG IV SCH (18:06)
[2025-05-03 20:54] LABS: INR-International Normal Ratio 1.5; Prothrombin Time 18.5 sec (12.0-14.7)
[2025-05-03 20:55] LABS: PTT 51.7 sec (22.9-36.1)
[2025-05-03 20:59] LABS: Fibrinogen 886 mg/dL (253-463)
[2025-05-03 21:02] LABS: D-Dimer Test 6.72 mcg/mL (0.27-0.43)
[2025-05-03 21:34] LABS: PT 1:1 37C-90 min. Incubation 16.9 sec (12.0-14.7); PTT 1:1 37C/90 MIN Incubation 66.5 sec (22.9-36.1); Pathologist Interp - MIX Study An Inhibitor
[2025-05-04 07:41] LABS: PTT 41.4 sec (22.9-36.1)
[2025-05-04 07:44] LABS: Anion Gap 16 mmol/L (10-20); BUN (Urea Nitrogen) 22 mg/dL (8.4-25.7); Calc. Creatinine Clearance 80 mL/min (70-130); Calcium 9.2 mg/dL (7.8-10.44); Carbon Dioxide 19 mmol/L (23-31); Chloride 102 mmol/L (98-107); Glucose 119 mg/dL (83-110); INR-International Normal Ratio 1.6; Potassium 4.0 mmol/L (3.5-5.1); Prothrombin Time 19.5 sec (12.0-14.7); Sodium 133 mmol/L (136-145)
[2025-05-05 06:25] LABS: INR-International Normal Ratio 1.6; PTT 50.3 sec (22.9-36.1); Prothrombin Time 19.2 sec (12.0-14.7)
[2025-05-05 07:20] VITALS: BP 133/77; TEMP 97.7
[2025-05-05 11:34] LABS: ANA Symphony (Qualitative) Negative (Negative); ANA Symphony (Quantitative) 0.3 Ratio (< 0.7 Negative); Mitochondrial Ab 1.2 U/mL (<4 Negative); Thyroid Peroxidase IgG Ab 4.2 IU/mL (<25 Normal); dsDNA IgG Antibody 1.9 IU/mL (<10 Negative)
== END 2025-05-05 09:05 | disposition home health service (06) | DRG 56 ==
LOC: SURG A 08:15 → INTOOBSV 08:15 → SURG A 14:14 → OBSVTOIN 05-03 16:43
PROVIDERS: ADMIT Neurological Surgery; ATTEND Emergency Medicine
DX: G91.2 (Idiopathic) normal pressure hydrocephalus (principal); D65 Disseminated intravascular coagulation [defibrination syndrome]; D68.8 Other specified coagulation defects; I44.2 Atrioventricular block, complete; E44.0 Moderate protein-calorie malnutrition; E87.1 Hypo-osmolality and hyponatremia; C81.24 Mixed cellularity Hodgkin lymphoma, lymph nodes of axilla and upper limb; R79.89 Other specified abnormal findings of blood chemistry; I10 Essential (primary) hypertension; Z95.0 Presence of cardiac pacemaker; Z98.890 Other specified postprocedural states; E78.5 Hyperlipidemia, unspecified; N40.0 Benign prostatic hyperplasia without lower urinary tract symptoms; Z79.899 Other long term (current) drug therapy; Z68.36 Body mass index [BMI] 36.0-36.9, adult; Z53.09 Procedure and treatment not carried out because of other contraindication; K76.9 Liver disease, unspecified; R32 Unspecified urinary incontinence; K76.0 Fatty (change of) liver, not elsewhere classified; Z96.651 Presence of right artificial knee joint
CPT/HCPCS: 36415; 71046; 76705; 80048; 80053; 80076; 81001; 83516; 85025; 85049; 85300; 85362; 85384; 85610; 85611; 85730; 85732; 86038; 86160; 86225; 86376; 86704; 86706; 86803; 87086; 87340; 96374; 96376; G0378; G0379; J1308; J3373; J3480

== ENCOUNTER 2025-05-17 11:09 | Day surgery (SDC) | payer MEDICARE ==
[2025-05-16 16:59] VITALS: BMI 29.7
[2025-05-17] MEDS ORDERED: Lidocaine 1% w/Epinephrine 1:100K 20 ML VIAL ONE (12:31)
[2025-05-17] MEDS ORDERED: Bupivacaine 0.25% HCL 30 ML VIAL ONE (12:31)
[2025-05-17] MEDS ORDERED: Lidocaine 1% PF 5 ML VIAL ONE (12:33)
[2025-05-17] MEDS ORDERED: PROPOFOL 20 ML ONE (12:33)
[2025-05-17] MEDS ORDERED: CEFAZOLIN 2 GM VIAL ONE (12:39)
[2025-05-17] MEDS ORDERED: PHENYLEPHRINE-NS 100 MCG/ML 10 ML SYRINGE ONE (13:00)
[2025-05-17] MEDS ORDERED: Ondansetron PF 4 MG/2 ML Vial ONE (13:25)
== END 2025-05-17 15:45 | disposition home or self-care (01) ==
LOC: SDC 11:09
PROVIDERS: ATTEND Surgery
PROC: 0JH60WZ Insertion of Totally Implantable Vascular Access Device into Chest Subcutaneous Tissue and Fascia, Open Approach (ICD-10-PCS; principal; 2025-05-17)
DX: C85.90 Non-Hodgkin lymphoma, unspecified, unspecified site (principal); Z95.0 Presence of cardiac pacemaker; Z96.659 Presence of unspecified artificial knee joint
CPT/HCPCS: 36561; 71045; J0169; J0665; J1642; J2704; J3010; C1788; J2405

== ENCOUNTER 2025-05-22 15:33 | Inpatient (IN) | payer MEDICARE ==
[2025-05-22 17:17] LABS: #Basophils 0.04 10x3/uL (0.0-0.2); #Eosinophils Less than 0.03 10x3/uL (0.0-0.7); #Monocytes 0.67 10x3/uL (0.11-0.59); #Neutrophils 11.91 10x3/uL (1.40-6.50); %Basophils 0.3 % (0.0-1.0); %Eosinophils 0.1 % (0.0-10.0); %Lymphocytes 3.9 % (21.0-51.0); %Monocytes 5.1 % (0.0-10.0); %Neutrophils 90.0 % (42.0-75.0); Hematocrit 37.5 % (42.0-52.0); Hemoglobin 12.0 g/dL (14.0-18.0); Mean Corpuscular Hemoglobin 26.3 pg (27.0-31.0); Mean Corpuscular Volume 82.1 fL (78.0-98.0); Platelet Count 232 10x3/uL (130-400); Red Blood Cell (RBC) Count 4.57 mill/uL (4.70-6.10); White Blood Cell (WBC) Count 13.23 10x3/uL (4.8-10.8)
[2025-05-22 17:37] LABS: ALT (SGPT) 22 U/L (Less than 45); AST (SGOT) 41 U/L (11-34); Albumin 2.7 g/dL (3.1-4.5); Alkaline Phosphatase 154 U/L (40-110); Anion Gap 18 mmol/L (10-20); BUN (Urea Nitrogen) 20 mg/dL (8.4-25.7); Bilirubin, Total 0.7 mg/dL (0.3-1.2); Calc. Creatinine Clearance 0 mL/min (70-130); Calcium 9.4 mg/dL (7.8-10.44); Carbon Dioxide 15 mmol/L (23-31); Chloride 106 mmol/L (98-107); Globulin 4.7 g/dL (2.4-3.5); Glucose 139 mg/dL (83-110); Potassium 4.6 mmol/L (3.5-5.1); Sodium 134 mmol/L (136-145)
[2025-05-22] MEDS ORDERED: Cefepime 2 GM VIAL ONE (17:38)
[2025-05-22 17:44] LABS: Bacteria/HPF None Seen HPF (None Seen); CAUTI Indications for Culture Fever or rigors; Glucose, Urine (Dipstick) Normal (Negative); Leukocyte Negative Leu/uL (Negative); Protein, Urine (Dipstick) 20 mg/dL (Neg-Trace); RBC/HPF 0-3 HPF (0-3); Specific Gravity, Urine 1.022 (1.002-1.036); WBC/HPF 0-3 HPF (0-3)
[2025-05-22 17:46] LABS: Urine Culture Reflex No No
[2025-05-22] MEDS ORDERED: VANCOMYCIN 2 GRAM/400 ML BAG ONE (18:14)
[2025-05-22 21:26] VITALS: BMI 28.8
[2025-05-23] MEDS ORDERED: Pharmacy to Dose: VANC IVPB PRN (00:59)
[2025-05-23] MEDS ORDERED: Ondansetron PF 4 MG/2 ML Vial IVP PRN (00:59)
[2025-05-23] MEDS ORDERED: Senokot S 8.6-50 MG TAB PO PRN (00:59)
[2025-05-23] MEDS ORDERED: Melatonin 3 MG TAB PO PRN (00:59)
[2025-05-23] MEDS ORDERED: Electrolyte Replacement Protocol 1 EACH FS PRN (00:59)
[2025-05-23] MEDS: cefTRIAXone\\ROCEPHIN 2 GM in Sodium Chloride 0.9% 100 ML IVPB SCH ×2 (02:03→13:31)
[2025-05-23] MEDS: Acetaminophen 325 MG TAB PO SCH (02:03)
[2025-05-23 03:56] LABS: #Basophils 0.06 10x3/uL (0.0-0.2); #Eosinophils Less than 0.03 10x3/uL (0.0-0.7); #Monocytes 0.41 10x3/uL (0.11-0.59); #Neutrophils 11.45 10x3/uL (1.40-6.50); %Basophils 0.5 % (0.0-1.0); %Eosinophils 0.2 % (0.0-10.0); %Lymphocytes 3.3 % (21.0-51.0); %Monocytes 3.3 % (0.0-10.0); %Neutrophils 91.9 % (42.0-75.0); Hematocrit 31.3 % (42.0-52.0); Hemoglobin 9.8 g/dL (14.0-18.0); Mean Corpuscular Hemoglobin 26.4 pg (27.0-31.0); Mean Corpuscular Volume 84.4 fL (78.0-98.0); Platelet Count 208 10x3/uL (130-400); Red Blood Cell (RBC) Count 3.71 mill/uL (4.70-6.10); White Blood Cell (WBC) Count 12.45 10x3/uL (4.8-10.8)
[2025-05-23 04:13] LABS: Vancomycin, Random 18.3 ug/mL (See Comment)
[2025-05-23 04:15] LABS: ALT (SGPT) 17 U/L (Less than 45); AST (SGOT) 26 U/L (11-34); Albumin 2.1 g/dL (3.1-4.5); Alkaline Phosphatase 117 U/L (40-110); Anion Gap 13 mmol/L (10-20); BUN (Urea Nitrogen) 17 mg/dL (8.4-25.7); Bilirubin, Total 0.6 mg/dL (0.3-1.2); Calc. Creatinine Clearance 66 mL/min (70-130); Calcium 8.8 mg/dL (7.8-10.44); Carbon Dioxide 18 mmol/L (23-31); Chloride 107 mmol/L (98-107); Globulin 3.9 g/dL (2.4-3.5); Glucose 114 mg/dL (83-110); Magnesium 1.9 mg/dL (1.6-2.6); Potassium 3.8 mmol/L (3.5-5.1); Sodium 134 mmol/L (136-145)
[2025-05-23 07:33] LABS: Glucose, Urine (Dipstick) Normal (Negative); Leukocyte 500 Leu/uL (Negative); Protein, Urine (Dipstick) 20 mg/dL (Neg-Trace); RBC/HPF 21-50 HPF (0-3); Specific Gravity, Urine 1.016 (1.002-1.036); WBC/HPF Greater than 50 HPF (0-3)
[2025-05-23 07:37] LABS: Bacteria/HPF 1+ HPF (None Seen)
[2025-05-23] MEDS: Magnesium 2 GM/50 ML(in water) 2 GM in Premix 1 BAG IVPB SCH (08:29)
[2025-05-23] MEDS: Vancomycin 1.5 GM / NS 500 ML VIAL-2-BAG IVPB SCH (08:30)
[2025-05-23] MEDS: Enoxaparin 40 MG (0.4 mL) SYRINGE SC SCH (08:30)
[2025-05-23] MEDS ORDERED: Acetaminophen 325 MG TAB PO PRN (09:52)
[2025-05-23] MEDS: Senokot S 8.6-50 MG TAB PO SCH ×2 (12:09→21:38)
[2025-05-23] MEDS: Albumin 25% 25 GM (100 mL) BOT IVPB SCH (12:09)
[2025-05-23] MEDS: Bisacodyl 10 MG SUPP PR SCH (21:38)
[2025-05-24 03:59] LABS: #Basophils Less than 0.03 10x3/uL (0.0-0.2); #Eosinophils 0.23 10x3/uL (0.0-0.7); #Monocytes 0.45 10x3/uL (0.11-0.59); #Neutrophils 4.81 10x3/uL (1.40-6.50); %Basophils 0.3 % (0.0-1.0); %Eosinophils 3.8 % (0.0-10.0); %Lymphocytes 7.8 % (21.0-51.0); %Monocytes 7.5 % (0.0-10.0); %Neutrophils 80.3 % (42.0-75.0); Hematocrit 29.9 % (42.0-52.0); Hemoglobin 8.7 g/dL (14.0-18.0); Mean Corpuscular Hemoglobin 26.4 pg (27.0-31.0); Mean Corpuscular Volume 90.9 fL (78.0-98.0); Platelet Count 128 10x3/uL (130-400); Red Blood Cell (RBC) Count 3.29 mill/uL (4.70-6.10); White Blood Cell (WBC) Count 6.00 10x3/uL (4.8-10.8)
[2025-05-24 04:21] LABS: ALT (SGPT) 12 U/L (Less than 45); AST (SGOT) 22 U/L (11-34); Albumin 3.0 g/dL (3.1-4.5); Alkaline Phosphatase 86 U/L (40-110); Anion Gap 19 mmol/L (10-20); BUN (Urea Nitrogen) 23 mg/dL (8.4-25.7); Bilirubin, Total 0.4 mg/dL (0.3-1.2); Calc. Creatinine Clearance 54 mL/min (70-130); Calcium 8.8 mg/dL (7.8-10.44); Carbon Dioxide 16 mmol/L (23-31); Chloride 109 mmol/L (98-107); Globulin 2.9 g/dL (2.4-3.5); Glucose 102 mg/dL (83-110); Magnesium 2.5 mg/dL (1.6-2.6); Potassium 3.5 mmol/L (3.5-5.1); Sodium 140 mmol/L (136-145)
[2025-05-24 04:51] LABS: T4 4.49 ug/dL (4.87-11.72); Thyroid Stimulating Hormone 3.4924 uIU/mL (0.35-4.94)
[2025-05-24] MEDS: Potassium Bicarbonate/Cit Ac 20 MEQ TAB PO SCH (09:42)
[2025-05-24 17:41] VITALS: TEMP 98.7
[2025-05-24 17:42] VITALS: BP 108/54
[2025-05-25] MEDS ORDERED: cefTRIAXone\\ROCEPHIN 1 GM in Sodium Chloride 0.9% 100 ML IVPB SCH (02:00)
== END 2025-05-24 17:57 | disposition home health service (06) | DRG 840 ==
LOC: ERS 15:33 → 2SE 18:43
PROVIDERS: ADMIT Internal Medicine; ATTEND Internal Medicine
PROC: 30233J1 Transfusion of Nonautologous Serum Albumin into Peripheral Vein, Percutaneous Approach (ICD-10-PCS; principal; 2025-05-22)
PROC: 3E03329 Introduction of Other Anti-infective into Peripheral Vein, Percutaneous Approach (ICD-10-PCS; 2025-05-22)
DX: C81.90 Hodgkin lymphoma, unspecified, unspecified site (principal); A41.9 Sepsis, unspecified organism; G92.9 Unspecified toxic encephalopathy; R65.21 Severe sepsis with septic shock; E87.20 Acidosis, unspecified; N17.9 Acute kidney failure, unspecified; G91.9 Hydrocephalus, unspecified; E44.0 Moderate protein-calorie malnutrition; E87.1 Hypo-osmolality and hyponatremia; E78.5 Hyperlipidemia, unspecified; E86.0 Dehydration; D63.0 Anemia in neoplastic disease; E87.6 Hypokalemia; D75.839 Thrombocytosis, unspecified; Z79.899 Other long term (current) drug therapy
CPT/HCPCS: 36415; 71045; 80053; 80202; 81001; 83605; 83735; 84436; 84443; 85025; 87040; 87081; 87086; 87428; 87633; 87798; 93005; J0692; J0696; J1650; J3375; J3475; J7030; P9047

== ENCOUNTER 2025-06-06 20:11 | Inpatient (IN) | payer MEDICARE ==
[2025-06-06 21:11] LABS: #Basophils 0.16 10x3/uL (0.0-0.2); #Eosinophils 0.15 10x3/uL (0.0-0.7); #Monocytes 1.24 10x3/uL (0.11-0.59); #Neutrophils 5.44 10x3/uL (1.40-6.50); %Basophils 1.8 % (0.0-1.0); %Eosinophils 1.7 % (0.0-10.0); %Lymphocytes 21.0 % (21.0-51.0); %Monocytes 13.7 % (0.0-10.0); %Neutrophils 59.8 % (42.0-75.0); Hematocrit 36.9 % (42.0-52.0); Hemoglobin 11.7 g/dL (14.0-18.0); Mean Corpuscular Hemoglobin 26.4 pg (27.0-31.0); Mean Corpuscular Volume 83.3 fL (78.0-98.0); Platelet Count 222 10x3/uL (130-400); Red Blood Cell (RBC) Count 4.43 mill/uL (4.70-6.10); White Blood Cell (WBC) Count 9.08 10x3/uL (4.8-10.8)
[2025-06-06 21:16] LABS: CAUTI Indications for Culture Alt mental st,lethar; Glucose, Urine (Dipstick) 30 mg/dL (Negative); Leukocyte Negative Leu/uL (Negative); Protein, Urine (Dipstick) 70 mg/dL (Neg-Trace); Specific Gravity, Urine 1.032 (1.002-1.036)
[2025-06-06 21:24] LABS: Bacteria/HPF 1+ HPF (None Seen)
[2025-06-06 21:25] LABS: Urine Culture Reflex No No
[2025-06-06 21:29] LABS: ALT (SGPT) 49 U/L (Less than 45); AST (SGOT) 84 U/L (11-34); Albumin 2.7 g/dL (3.1-4.5); Alkaline Phosphatase 116 U/L (40-110); Anion Gap 21 mmol/L (10-20); BUN (Urea Nitrogen) 10 mg/dL (8.4-25.7); Bilirubin, Total 1.1 mg/dL (0.3-1.2); Calc. Creatinine Clearance 0 mL/min (70-130); Calcium 8.3 mg/dL (7.8-10.44); Carbon Dioxide 17 mmol/L (23-31); Chloride 98 mmol/L (98-107); Globulin 3.8 g/dL (2.4-3.5); Glucose 209 mg/dL (83-110); Potassium 3.2 mmol/L (3.5-5.1); Sodium 133 mmol/L (136-145)
[2025-06-06] MEDS ORDERED: Cefepime 2 GM VIAL ONE (22:06)
[2025-06-07] MEDS ORDERED: Ondansetron PF 4 MG/2 ML Vial IVP PRN (02:04)
[2025-06-07] MEDS ORDERED: Acetaminophen 325 MG TAB PO PRN (02:04)
[2025-06-07] MEDS ORDERED: Calcium Carbonate 500 MG ChewTAB PO PRN (02:04)
[2025-06-07] MEDS ORDERED: Senokot S 8.6-50 MG TAB PO PRN (02:04)
[2025-06-07] MEDS ORDERED: Potassium Bicarbonate/Cit Ac 20 MEQ TAB ONE (03:45)
[2025-06-07 05:19] LABS: #Basophils 0.16 10x3/uL (0.0-0.2); #Eosinophils 0.20 10x3/uL (0.0-0.7); #Monocytes 0.76 10x3/uL (0.11-0.59); #Neutrophils 4.51 10x3/uL (1.40-6.50); %Basophils 2.3 % (0.0-1.0); %Eosinophils 2.8 % (0.0-10.0); %Lymphocytes 18.0 % (21.0-51.0); %Monocytes 10.8 % (0.0-10.0); %Neutrophils 63.8 % (42.0-75.0); Hematocrit 35.0 % (42.0-52.0); Hemoglobin 11.0 g/dL (14.0-18.0); Mean Corpuscular Hemoglobin 26.7 pg (27.0-31.0); Mean Corpuscular Volume 85.0 fL (78.0-98.0); Platelet Count 211 10x3/uL (130-400); Red Blood Cell (RBC) Count 4.12 mill/uL (4.70-6.10); White Blood Cell (WBC) Count 7.06 10x3/uL (4.8-10.8)
[2025-06-07 05:40] LABS: ALT (SGPT) 48 U/L (Less than 45); AST (SGOT) 85 U/L (11-34); Albumin 2.5 g/dL (3.1-4.5); Alkaline Phosphatase 107 U/L (40-110); Anion Gap 19 mmol/L (10-20); BUN (Urea Nitrogen) 10 mg/dL (8.4-25.7); Bilirubin, Total 1.1 mg/dL (0.3-1.2); Calc. Creatinine Clearance 0 mL/min (70-130); Calcium 7.9 mg/dL (7.8-10.44); Carbon Dioxide 18 mmol/L (23-31); Chloride 101 mmol/L (98-107); Globulin 3.4 g/dL (2.4-3.5); Glucose 169 mg/dL (83-110); Potassium 3.1 mmol/L (3.5-5.1); Sodium 135 mmol/L (136-145)
[2025-06-07 06:49] LABS: Actual Bicarbonate (HCO3v) 16.5 mEq/L (22-28); Base Excess -7.9 mEq/L (-2.0 to +3.0); Calcium, Ionized (venous) 0.91 mmol/L (1.16-1.32); Chloride (VBG) 102 mmol/L (98-106); Hematocrit-VBG 39 % (42.0-52.0); Hemoglobin (Hb) 13.2 g/dL (12.6-17.4); Potassium (VBG) 3.51 mmol/L (3.70-5.30); Sodium 135 mmol/L (133-146)
[2025-06-07] MEDS ORDERED: cefTRIAXone (ROCEPHIN) 1 GM VIAL ONE (06:50)
[2025-06-07] MEDS: cefTRIAXone\\ROCEPHIN 1 GM in Sodium Chloride 0.9% 100 ML IVPB SCH (07:50)
[2025-06-07] MEDS ORDERED: Enoxaparin 40 MG (0.4 mL) SYRINGE ONE (08:00)
[2025-06-07] MEDS: Enoxaparin 40 MG (0.4 mL) SYRINGE SC SCH (08:35)
[2025-06-07] MEDS: Albumin 25% 25 GM (100 mL) BOT IVPB SCH (08:35)
[2025-06-07] MEDS: Scopolamine 1 mg/72 hour Patch TD SCH (22:06)
[2025-06-07] MEDS: Pantoprazole 40 MG VIAL IVP SCH (22:07)
[2025-06-08 03:58] LABS: #Basophils 0.08 10x3/uL (0.0-0.2); #Eosinophils 0.20 10x3/uL (0.0-0.7); #Monocytes 0.88 10x3/uL (0.11-0.59); #Neutrophils 3.58 10x3/uL (1.40-6.50); %Basophils 1.3 % (0.0-1.0); %Eosinophils 3.4 % (0.0-10.0); %Lymphocytes 19.0 % (21.0-51.0); %Monocytes 14.8 % (0.0-10.0); %Neutrophils 60.2 % (42.0-75.0); Hematocrit 27.2 % (42.0-52.0); Hemoglobin 8.8 g/dL (14.0-18.0); Mean Corpuscular Hemoglobin 27.4 pg (27.0-31.0); Mean Corpuscular Volume 84.7 fL (78.0-98.0); Platelet Count 169 10x3/uL (130-400); Red Blood Cell (RBC) Count 3.21 mill/uL (4.70-6.10); White Blood Cell (WBC) Count 5.95 10x3/uL (4.8-10.8)
[2025-06-08 04:17] LABS: ALT (SGPT) 37 U/L (Less than 45); AST (SGOT) 61 U/L (11-34); Albumin 2.1 g/dL (3.1-4.5); Alkaline Phosphatase 81 U/L (40-110); Anion Gap 15 mmol/L (10-20); BUN (Urea Nitrogen) 8 mg/dL (8.4-25.7); Bilirubin, Total 1.0 mg/dL (0.3-1.2); Calc. Creatinine Clearance 89 mL/min (70-130); Calcium 7.7 mg/dL (7.8-10.44); Carbon Dioxide 16 mmol/L (23-31); Chloride 110 mmol/L (98-107); Globulin 2.6 g/dL (2.4-3.5); Glucose 151 mg/dL (83-110); Potassium 3.2 mmol/L (3.5-5.1); Sodium 138 mmol/L (136-145)
[2025-06-08] MEDS: Potassium Chloride 20 MEQ in Premix 1 BAG IVPB SCH (05:05)
[2025-06-08] MEDS: Pantoprazole 40 MG VIAL IVP SCH (08:45)
[2025-06-08] MEDS ORDERED: VANC IVPB PRN (08:58)
[2025-06-08] MEDS: VANCOMYCIN 2 GRAM/400 ML BAG 2 GM in Premix 1 BAG IVPB SCH (11:46)
[2025-06-08 17:55] LABS: Potassium 3.7 mmol/L (3.5-5.1)
[2025-06-08] MEDS: Vancomycin 1 GM in Premix 1 BAG IVPB SCH (21:40)
[2025-06-09 05:04] LABS: #Basophils 0.10 10x3/uL (0.0-0.2); #Eosinophils 0.23 10x3/uL (0.0-0.7); #Monocytes 0.96 10x3/uL (0.11-0.59); #Neutrophils 2.97 10x3/uL (1.40-6.50); %Basophils 1.8 % (0.0-1.0); %Eosinophils 4.0 % (0.0-10.0); %Lymphocytes 23.9 % (21.0-51.0); %Monocytes 16.9 % (0.0-10.0); %Neutrophils 52.2 % (42.0-75.0); Hematocrit 30.3 % (42.0-52.0); Hemoglobin 9.2 g/dL (14.0-18.0); Mean Corpuscular Hemoglobin 27.3 pg (27.0-31.0); Mean Corpuscular Volume 89.9 fL (78.0-98.0); Platelet Count 155 10x3/uL (130-400); Red Blood Cell (RBC) Count 3.37 mill/uL (4.70-6.10); White Blood Cell (WBC) Count 5.69 10x3/uL (4.8-10.8)
[2025-06-09 05:32] LABS: Vancomycin, Random 20.9 ug/mL (See Comment)
[2025-06-09 05:36] LABS: ALT (SGPT) 42 U/L (Less than 45); AST (SGOT) 75 U/L (11-34); Albumin 2.1 g/dL (3.1-4.5); Alkaline Phosphatase 95 U/L (40-110); Anion Gap 13 mmol/L (10-20); BUN (Urea Nitrogen) 10 mg/dL (8.4-25.7); Bilirubin, Total 1.3 mg/dL (0.3-1.2); Calc. Creatinine Clearance 70 mL/min (70-130); Calcium 7.7 mg/dL (7.8-10.44); Carbon Dioxide 17 mmol/L (23-31); Chloride 114 mmol/L (98-107); Globulin 2.6 g/dL (2.4-3.5); Glucose 123 mg/dL (83-110); Potassium 3.3 mmol/L (3.5-5.1); Sodium 141 mmol/L (136-145)
[2025-06-09] MEDS: Potassium Chloride 20 MEQ in Premix 1 BAG IVPB SCH (08:31)
[2025-06-10] MEDS: diphenhydrAMINE 50 MG/ML VIAL IVP SCH (01:51)
[2025-06-10 04:38] LABS: Hematocrit 27.9 % (42.0-52.0); Hemoglobin 8.7 g/dL (14.0-18.0); Mean Corpuscular Hemoglobin 27.3 pg (27.0-31.0); Mean Corpuscular Volume 87.5 fL (78.0-98.0); Platelet Count 144 10x3/uL (130-400); Red Blood Cell (RBC) Count 3.19 mill/uL (4.70-6.10); White Blood Cell (WBC) Count 4.11 10x3/uL (4.8-10.8)
[2025-06-10 04:55] LABS: Vancomycin, Random 14.5 ug/mL (See Comment)
[2025-06-10 04:59] LABS: ALT (SGPT) 39 U/L (Less than 45); AST (SGOT) 61 U/L (11-34); Albumin 1.9 g/dL (3.1-4.5); Alkaline Phosphatase 104 U/L (40-110); Anion Gap 16 mmol/L (10-20); BUN (Urea Nitrogen) 12 mg/dL (8.4-25.7); Bilirubin, Total 1.2 mg/dL (0.3-1.2); Calc. Creatinine Clearance 74 mL/min (70-130); Calcium 7.8 mg/dL (7.8-10.44); Carbon Dioxide 18 mmol/L (23-31); Chloride 117 mmol/L (98-107); Globulin 2.5 g/dL (2.4-3.5); Glucose 130 mg/dL (83-110); Potassium 3.2 mmol/L (3.5-5.1); Sodium 148 mmol/L (136-145)
[2025-06-10 05:44] LABS: Other Cell Types 1.8; Platelet Adequacy Comment Platelets Normal; RBC Morphology Within Normal Limits; Smudge Cells 43.1 %
[2025-06-10] MEDS: Potassium Chloride 20 MEQ in Premix 1 BAG IVPB SCH (09:12)
[2025-06-10 16:07] LABS: Potassium 3.7 mmol/L (3.5-5.1)
[2025-06-10] MEDS: Melatonin 3 MG TAB PO PRN (21:09)
[2025-06-11 05:21] LABS: Hematocrit 31.3 % (42.0-52.0); Hemoglobin 9.4 g/dL (14.0-18.0); Mean Corpuscular Hemoglobin 27.2 pg (27.0-31.0); Mean Corpuscular Volume 90.5 fL (78.0-98.0); Platelet Count 125 10x3/uL (130-400); Red Blood Cell (RBC) Count 3.46 mill/uL (4.70-6.10); White Blood Cell (WBC) Count 4.12 10x3/uL (4.8-10.8)
[2025-06-11 05:42] LABS: Anisocytosis SLIGHT = 6-15 cells HPF (0-5); Platelet Adequacy Comment Platelets Decreased; Polychromasia SLIGHT = 2-3 cells HPF (0-2)
[2025-06-11 05:53] LABS: ALT (SGPT) 51 U/L (Less than 45); AST (SGOT) 73 U/L (11-34); Albumin 2.0 g/dL (3.1-4.5); Alkaline Phosphatase 131 U/L (40-110); Anion Gap 16 mmol/L (10-20); BUN (Urea Nitrogen) 11 mg/dL (8.4-25.7); Bilirubin, Total 1.4 mg/dL (0.3-1.2); Calc. Creatinine Clearance 90 mL/min (70-130); Calcium 7.9 mg/dL (7.8-10.44); Carbon Dioxide 13 mmol/L (23-31); Chloride 118 mmol/L (98-107); Globulin 2.7 g/dL (2.4-3.5); Glucose 83 mg/dL (83-110); Potassium 3.9 mmol/L (3.5-5.1); Sodium 143 mmol/L (136-145)
[2025-06-12] MEDS: diphenhydrAMINE 50 MG/ML VIAL IVP SCH ×2 (00:26→19:54)
[2025-06-12 06:01] LABS: #Basophils 0.10 10x3/uL (0.0-0.2); #Eosinophils 0.04 10x3/uL (0.0-0.7); #Monocytes 0.68 10x3/uL (0.11-0.59); #Neutrophils 1.37 10x3/uL (1.40-6.50); %Basophils 2.8 % (0.0-1.0); %Eosinophils 1.1 % (0.0-10.0); %Lymphocytes 37.0 % (21.0-51.0); %Monocytes 19.0 % (0.0-10.0); %Neutrophils 38.4 % (42.0-75.0); Hematocrit 30.3 % (42.0-52.0); Hemoglobin 9.3 g/dL (14.0-18.0); Mean Corpuscular Hemoglobin 27.1 pg (27.0-31.0); Mean Corpuscular Volume 88.3 fL (78.0-98.0); Platelet Count 131 10x3/uL (130-400); Red Blood Cell (RBC) Count 3.43 mill/uL (4.70-6.10); White Blood Cell (WBC) Count 3.57 10x3/uL (4.8-10.8)
[2025-06-12 06:09] LABS: Anion Gap 13 mmol/L (10-20); BUN (Urea Nitrogen) 11 mg/dL (8.4-25.7); Calc. Creatinine Clearance 92 mL/min (70-130); Calcium 8.0 mg/dL (7.8-10.44); Carbon Dioxide 20 mmol/L (23-31); Chloride 116 mmol/L (98-107); Glucose 100 mg/dL (83-110); Potassium 3.1 mmol/L (3.5-5.1); Sodium 146 mmol/L (136-145)
[2025-06-12 06:25] LABS: Anisocytosis SLIGHT = 6-15 cells HPF (0-5); Platelet Adequacy Comment Platelets Normal
[2025-06-12] MEDS ORDERED: Potassium Bicarbonate/Cit Ac 20 MEQ TAB PO SCH (08:00)
[2025-06-12] MEDS: Potassium Phosphate 30 MMOL in Sodium Chloride 0.9% 250 ML 250 ML IVPB SCH (13:52)
[2025-06-12 16:56] LABS: INR-International Normal Ratio 1.9; Prothrombin Time 21.5 sec (12.0-14.7)
[2025-06-12 17:20] LABS: Anion Gap 16 mmol/L (10-20); BUN (Urea Nitrogen) 9 mg/dL (8.4-25.7); Calc. Creatinine Clearance 90 mL/min (70-130); Calcium 7.8 mg/dL (7.8-10.44); Carbon Dioxide 19 mmol/L (23-31); Chloride 114 mmol/L (98-107); Glucose 93 mg/dL (83-110); Potassium 3.5 mmol/L (3.5-5.1); Sodium 145 mmol/L (136-145)
[2025-06-12] MEDS: Potassium Chloride 20 MEQ in Premix 1 BAG IVPB SCH (19:53)
[2025-06-13 03:49] LABS: Hematocrit 27.1 % (42.0-52.0); Hemoglobin 8.6 g/dL (14.0-18.0); Mean Corpuscular Hemoglobin 26.9 pg (27.0-31.0); Mean Corpuscular Volume 84.7 fL (78.0-98.0); Platelet Count 138 10x3/uL (130-400); Red Blood Cell (RBC) Count 3.20 mill/uL (4.70-6.10); White Blood Cell (WBC) Count 4.10 10x3/uL (4.8-10.8)
[2025-06-13 04:07] LABS: Vancomycin, Random 14.3 ug/mL (See Comment)
[2025-06-13 04:09] LABS: Anion Gap 15 mmol/L (10-20); BUN (Urea Nitrogen) 8 mg/dL (8.4-25.7); Calc. Creatinine Clearance 97 mL/min (70-130); Calcium 7.8 mg/dL (7.8-10.44); Carbon Dioxide 22 mmol/L (23-31); Chloride 112 mmol/L (98-107); Glucose 85 mg/dL (83-110); Potassium 3.2 mmol/L (3.5-5.1); Sodium 146 mmol/L (136-145)
[2025-06-13 04:20] LABS: Anisocytosis SLIGHT = 6-15 cells HPF (0-5); Platelet Adequacy Comment Platelets Normal; Polychromasia SLIGHT = 2-3 cells HPF (0-2); Target Cells SLIGHT = 2-5 cells HPF (0-1)
[2025-06-13] MEDS: diphenhydrAMINE 50 MG/ML VIAL IVP SCH (06:30)
[2025-06-13] MEDS: Potassium Chloride 20 MEQ in Premix 1 BAG IVPB SCH (09:01)
[2025-06-13] MEDS: VANCOMYCIN 1.75 GM/350 ML BAG 1.75 GM in Premix 1 BAG IVPB SCH (11:38)
[2025-06-14 00:31] VITALS: BP 114/66; TEMP 98.9; BMI 29.5
== END 2025-06-13 19:25 | disposition home or self-care (01) | DRG 871 ==
LOC: ERS 20:11 → ERHOLD 23:39 → IMCU/EMU 06-07 18:35
PROVIDERS: ADMIT Internal Medicine; ATTEND Internal Medicine
DX: A41.9 Sepsis, unspecified organism (principal); G93.41 Metabolic encephalopathy; E87.20 Acidosis, unspecified; E87.1 Hypo-osmolality and hyponatremia; C81.90 Hodgkin lymphoma, unspecified, unspecified site; G91.9 Hydrocephalus, unspecified; E87.0 Hyperosmolality and hypernatremia; E87.6 Hypokalemia; E86.0 Dehydration; D64.9 Anemia, unspecified; Z66 Do not resuscitate; E88.09 Other disorders of plasma-protein metabolism, not elsewhere classified
CPT/HCPCS: 36415; 36416; 51701; 70450; 71045; 80048; 80053; 80202; 81001; 82550; 82805; 83605; 84100; 84484; 85025; 85610; 87040; 87086; 93005; 94760; 96374; 97139; J0692; J0696; J1200; J1650; J2470; J2543; J3373; J3375; J3480; J7030; J7042; J7050; J7070; P9047